=== PATIENT | male | born 1945 | race Native Hawaiian/Other Pacific Islander ===

== ENCOUNTER 2016-08-22 14:17 | Inpatient (IN) | payer MEDICARE ==
[2016-08-19 08:16] VITALS: BMI 30.2
--- NOTE | 2016-08-23 16:15 | CP.PCM.CON ---
History of Present Illness - History of Present Illness History of Present Illness: Dr Lion PMR consultation on Tiburcio Heller, born 1945 who has been admitted to [facility] for acute inpatient rehabilitation following a right ICH with left HP in MCA distribution. He had been previously independent Review of Systems - Constitutional Constitutional: absent: Anorexia, Chills - EENT Eyes: absent: Blind Spots, Blurred Vision Ears: absent: Ear Discharge, Disequilibrium Nose/Mouth/Throat: absent: Nasal Congestion - Cardiovascular Cardiovascular: absent: Chest Pain - Respiratory Respiratory: absent: Dyspnea - Gastrointestinal Gastrointestinal: absent: Bloating, Constipation - Musculoskeletal Musculoskeletal: absent: Arthralgias, Back Pain - Integumentary Integumentary: absent: Bleeding Lesions, Change in Hair - Neurological Neurological: absent: Abnormal Hearing, Abnormal Movements Past Patient History - Infectious Disease Hx of Infectious Diseases: None - Past Social History Smoking Status: Never Smoked Alcohol: None Drugs: Denies Home Situation {Lives}: With Family - CARDIAC Hx Hypertension: Yes - PULMONARY Hx Respiratory Disorders: No - NEUROLOGICAL Hx Neurological Disorder: No - HEENT Hx HEENT Problems: No Hx Cataracts: Yes - RENAL Hx Chronic Kidney Disease: No - ENDOCRINE/METABOLIC Hx Endocrine Disorders: No - HEMATOLOGICAL/ONCOLOGICAL Hx Blood Disorders: No - INTEGUMENTARY Hx Eczema: Yes - MUSCULOSKELETAL/RHEUMATOLOGICAL Hx Arthritis: Yes (KNEES) - GASTROINTESTINAL Hx Gastrointestinal Disorders: No - GENITOURINARY/GYNECOLOGICAL Hx Genitourinary Disorders: Yes - PSYCHIATRIC Hx Substance Use: No - SURGICAL HISTORY Hx Surgeries: No - ANESTHESIA Hx Anesthesia: No Meds Allergies/Adverse Reactions: Allergies Allergy/AdvReac Type Severity Reaction Status Date / Time No Known Allergies Allergy Verified 08/22/16 14:45 Physical Exam - Constitutional Appears: Well, Non-toxic, No Acute Distress - Head Exam Head Exam: ATRAUMATIC, NORMAL INSPECTION, NORMOCEPHALIC - Eye Exam Eye Exam: EOMI, Normal appearance, PERRL Pupil Exam: NORMAL ACCOMODATION, PERRL - ENT Exam ENT Exam: Mucous Membranes Moist - Respiratory Exam Respiratory Exam: NORMAL BREATHING PATTERN - Cardiovascular Exam Cardiovascular Exam: REGULAR RHYTHM - GI/Abdominal Exam GI & Abdominal Exam: absent: Distended, Firm - Extremities Exam Extremities exam: Negative for: calf tenderness, pedal edema - Neurological Exam Neurological exam: Alert, CN II-XII Intact, Oriented x3 - Psychiatric Exam Psychiatric exam: Normal Affect, Normal Mood - Skin Skin Exam: Warm Assessment & Plan - Assessment and Plan (Free Text) Assessment: 70 year old right hand dominant male who has been admitted for acute inpatient rehab coverage for Dr Amin left HP MCA distribution right ICH stable and doing well has 2/5 UE strength and 4-/5 LE PT/OT to continue to help increase functional independence Team conference for d/c planning Pain: controlled Vascular: no evidence of DVT GI: No evidence of constipation or diarrhea Patient is an excellent acute rehabilitation candidate and will have focused speech, PT, OT and recreational therapy to help facilitate a safe and appropriate d/c plan Impairment code 01.1
--- NOTE | 2016-08-23 16:19 | CP.PCM.PN ---
Subjective - Date & Time of Evaluation Date of Evaluation: 08/23/16 Time of Evaluation: 16:18 - Subjective Subjective: right ICH with left HP Physiatry Overall Plan of Care - Overall Plan of Care Estimated Length of Stay in Weeks: 3 Rehab Impairment: Mobility, Gait, Speech, Balance, Coordination Etiologic Diagnosis: Cerebrovascular Accident Rehab/Medical Prognosis: Good - Anticipated Interventions Physical Therapy:: Yes Occupational Therapy:: Yes Speech Therapy:: Yes Recreational Therapy:: Yes - Therapy Goals Bed Mobility: Supervision Ambulation: Supervision Functional Positional Changes:: Supervision - Discharge Plan Discharge Destination: Home
--- NOTE | 2016-08-23 17:36 | CP.PCM.HP ---
History of Present Illness - History of Present Illness History of Present Illness: 70 yo male with history of HTN was admitted at [facility] after falling in the bathroom on 08/19/2016. Patient claimed his left limbs suddenly got weak after taking a shower and was not able to support himself. There was no LOC. who rushed to his aid noticed left facial droop but no slurring of speech. He was immediately brought to the ER where code stroke was activated. CT scan of the brain was consistent with right small thalamic bleed. Neurosurgery was consulted and recommended no surgical intervention. Today patient was transferred to [facility] and admitted to Acute Rehab for PT/OT. Present on Admission - Present on Admission Any Indicators Present on Admission: No History of DVT/PE: No History of Uncontrolled Diabetes: No Urinary Catheter: No Decubitus Ulcer Present: No Review of Systems - Review of Systems All systems: reviewed and no additional remarkable complaints except (aside from those mentioned above, 12 point system review were negative by me) Past Patient History - Infectious Disease Hx of Infectious Diseases: None - Tetanus Immunizations Tetanus Immunization: Unknown - Past Medical History & Family History Past Medical History?: Yes Past Family History: Reviewed and not pertinent - Past Social History Smoking Status: Never Smoked Alcohol: None Drugs: Denies Home Situation {Lives}: With Family - CARDIAC Hx Hypertension: Yes - PULMONARY Hx Respiratory Disorders: No - NEUROLOGICAL Hx Neurological Disorder: No - HEENT Hx HEENT Problems: No Hx Cataracts: Yes - RENAL Hx Chronic Kidney Disease: No - ENDOCRINE/METABOLIC Hx Endocrine Disorders: No - HEMATOLOGICAL/ONCOLOGICAL Hx Blood Disorders: No - INTEGUMENTARY Hx Eczema: Yes - MUSCULOSKELETAL/RHEUMATOLOGICAL Hx Arthritis: Yes (KNEES) - GASTROINTESTINAL Hx Gastrointestinal Disorders: No - GENITOURINARY/GYNECOLOGICAL Hx Genitourinary Disorders: Yes Hx Prostate Problems: Yes (BPH) - PSYCHIATRIC Hx Substance Use: No - SURGICAL HISTORY Hx Surgeries: No - ANESTHESIA Hx Anesthesia: No Meds Allergies/Adverse Reactions: Allergies Allergy/AdvReac Type Severity Reaction Status Date / Time No Known Allergies Allergy Verified 08/22/16 14:45 Physical Exam - Constitutional Appears: No Acute Distress - Head Exam Head Exam: ATRAUMATIC - Eye Exam Eye Exam: absent: Scleral icterus - ENT Exam ENT Exam: Mucous Membranes Moist - Neck Exam Neck exam: Negative for: Meningismus - Respiratory Exam Respiratory Exam: absent: Rhonchi, Wheezes, Respiratory Distress - Cardiovascular Exam Cardiovascular Exam: REGULAR RHYTHM, +S1, +S2 - GI/Abdominal Exam GI & Abdominal Exam: Soft. absent: Tenderness - Rectal Exam Rectal Exam: Deferred - Extremities Exam Extremities exam: Negative for: pedal edema - Back Exam Back exam: NORMAL INSPECTION - Neurological Exam Neurological exam: Alert, Oriented x3 - Psychiatric Exam Psychiatric exam: Normal Affect - Skin Skin Exam: Dry, Intact Results - Vital Signs Recent Vital Signs: Last Vital Signs Temp Pulse 71 08/23/16 16:03 Resp 20 08/23/16 16:03 BP Pulse Ox 98 08/23/16 16:03 Assessment & Plan (1) CVA (cerebrovascular accident due to intracerebral hemorrhage) Status: Acute Comment: admit to Acute Rehab. refer to Dr Lion for physiatry consult. refer for PT/OT. BP control. neuro consult with Dr Metz (2) Hypertension Status: Chronic Comment: BP stable. continue Norvasc 10mg PO daily and Metoprolol 25mg PO q 12hrs
[2016-08-24 07:49] LABS: BASO % 0.4 % (0.0-2.0); EOS % 9.4 % (0.0-4.0); HEMOGLOBIN 15.9 g/dL (12.0-18.0); LYMPH # 1.9 K/uL (1.0-4.3); LYMPH % 17.3 % (20.0-40.0); MEAN CELL VOLUME 96.1 fl (80.0-94.0); MEAN CORPUSCULAR HEMOGLOBIN 31.6 pg (27.0-31.0); MEAN CORPUSCULAR HGB CONC 32.9 g/dL (33.0-37.0); MEAN PLATELET VOLUME 9.4 fl (7.2-11.7); MONO # 0.9 K/uL (0.0-0.8); MONO % 8.3 % (0.0-10.0); NEUT # 6.9 K/uL (1.8-7.0); NEUT % 64.6 % (50.0-75.0); RBC 5.02 Mil/uL (4.40-5.90); RED CELL DISTRIBUTION WIDTH 12.8 % (11.5-14.5); WHITE BLOOD COUNT 10.7 K/uL (4.8-10.8)
[2016-08-24 08:04] LABS: BLOOD UREA NITROGEN 22 mg/dl (9-20); CALCIUM 9.3 mg/dL (8.4-10.2); GFR AFRICAN-AMERICAN > 60; GFR NON-AFRICAN AMERICAN > 60
--- NOTE | 2016-08-26 10:43 | CP.PCM.PN ---
Subjective - Date & Time of Evaluation Date of Evaluation: 08/26/16 Time of Evaluation: 10:41 - Subjective Subjective: PATIENT DOING WELL NO COMPLAINTS TOLERATING PT WELL VITALS REVIEWED HD STABLE NAD Objective - Vital Signs/Intake and Output Vital Signs (last 24 hours): Temp Pulse Resp BP Pulse Ox 98.1 F 99 H 20 119/78 97 08/26/16 09:31 08/26/16 09:57 08/26/16 09:31 08/26/16 09:57 08/26/16 09:31 - Medications Medications: Current Medications Amlodipine Besylate (Norvasc) 10 mg PO DAILY [facility] Docusate Sodium (Colace) 100 mg PO BID [facility] Last Admin: 08/26/16 08:38 Dose: 100 mg Famotidine (Pepcid) 20 mg PO BID [facility] Last Admin: 08/26/16 08:40 Dose: 20 mg Metoprolol Tartrate (Lopressor) 25 mg PO Q12 [facility] - Labs Labs: 08/24/16 05:30 08/24/16 05:30 - Constitutional Appears: Non-toxic, No Acute Distress - Head Exam Head Exam: ATRAUMATIC, NORMOCEPHALIC - Eye Exam Eye Exam: EOMI, Normal appearance, PERRL Pupil Exam: NORMAL ACCOMODATION - ENT Exam ENT Exam: Mucous Membranes Moist, Normal Oropharynx - Neck Exam Neck Exam: Normal Inspection. absent: Lymphadenopathy - Respiratory Exam Respiratory Exam: Clear to Ausculation Bilateral, NORMAL BREATHING PATTERN - Cardiovascular Exam Cardiovascular Exam: RRR, +S1, +S2 - GI/Abdominal Exam GI & Abdominal Exam: Soft, Normal Bowel Sounds. absent: Tenderness, Organomegaly - Extremities Exam Extremities Exam: Normal Capillary Refill. absent: Joint Swelling - Back Exam Back Exam: absent: CVA tenderness (L), CVA tenderness (R) - Neurological Exam Neurological Exam: Alert, Awake - Psychiatric Exam Psychiatric exam: Normal Affect, Normal Mood - Skin Skin Exam: Dry, Warm Assessment and Plan - Assessment and Plan (Free Text) Plan: 70 yo male with history of HTN was admitted at [facility] after falling in the bathroom on 08/19/2016. Patient claimed his left limbs suddenly got weak after taking a shower and was not able to support himself. There was no LOC. who rushed to his aid noticed left facial droop but no slurring of speech. He was immediately brought to the ER where code stroke was activated. CT scan of the brain was consistent with right small thalamic bleed. Neurosurgery was consulted and recommended no surgical intervention. Today patient was transferred to [facility] and admitted to Acute Rehab for PT/OT. (1) CVA (cerebrovascular accident due to intracerebral hemorrhage) admit to Acute Rehab refer to Dr Lion for physiatry consult refer for PT/OT BP control neuro consult with Dr Metz (2) Hypertension BP stable continue Norvasc 10mg PO daily Metoprolol 25mg PO q 12hrs WITH PARAMETERS NO VTE PPX BLEED
--- NOTE | 2016-08-26 11:54 | DS ---
DATE: 08/24/2016 CHIEF COMPLAINT: The patient was brought into the facility with history of intracerebral bleed secondary to hypertension manifesting with left hemiplegia. Initially, patient was admitted in the [facility], being followed by me and his blood pressure being stabilized and all workup including MRI of the brain and electroencephalogram including carotid Doppler all done. At present, he denies any new complaints. However, he admits constipation for the last few days. PAST MEDICAL HISTORY: Hypertension which is uncontrolled and noncompliant to medication and compliant with the medication in the past prior to the stroke. ALLERGIES: NO KNOWN ALLERGIES. PERSONAL HISTORY: He denies smoking or alcohol use. MEDICATION: Colace, Lopressor, Norvasc and Pepcid. PHYSICAL EXAMINATION: VITAL SIGNS: Blood pressure 132/87, mean arterial pressure of 102, respiratory rate 16, temperature 97.4, pulse rate 82 and regular. NECK: Supple. No carotid bruits. HEART: Sounds are regular. CHEST: Bilateral air entry. EXTREMITIES: No edema or leg swelling. NEUROLOGIC:] MENTAL STATUS EXAMINATION: He is awake, alert and oriented to person, place and time. Speech is intact. No changes from his previous exam while he was in the [facility]. CRANIAL NERVE EXAMINATION: Visual field intact. Pupil react reactive to light. Extraocular movements normal. No nystagmus. No facial sensory deficit. Significant facial asymmetry manifesting as a flattening of the left nasolabial fold. Hearing is normal. Tongue is midline. Good grasp. MOTOR EXAMINATION: On outstretched hand No drift, noted on the right side. Left side has significant weakness due to the stroke manifesting with 2/5 weakness in the arm. Lower extremities showed 1/5 weakness. DEEP TENDON REFLEXES: Trace throughout. Plantars are upgoing on his left side. COORDINATION: [id number] test is intact on the right side. GAIT: Deferred at this time. CONCLUSION: Upon review of his history and neurological examination, Mr. Heller may be presenting with the poorly controlled hypertension manifesting with intracerebral bleed in his right basal ganglia manifested with left hemiplegia. Patient showed some motor findings improvement within the 72-hour period more than his leg. LABORATORY DATA: Blood workup; WBC 10.7, hemoglobin 15.9, hematocrit 48.3, platelets 180. Sodium 139, potassium 4.1, chloride 102, bicarbonate 26, BUN 22, creatinine 1.0, GFR more than 60. RECOMMENDATION: 1. Control the blood pressure. Keep the mean arterial blood pressure at around 100. 2. Patient definitely need left arm sling to prevent shoulder dislocation and cock-up splint to prevent wrist drop on his affected side. Shoulder sling can be used while he is sitting and cock-up splint can be used during rest. 3. Patient also recommended to have a Dulcolax suppository to avoid constipation and daily regular bowel movement. 4. DVT prophylaxis is not recommended and antiplatelet should not be given in the next 2 to 3 weeks. Patient is going to be kept with sequential SHERRY stockings for DVT prophylaxis. Cruz Metz MD MTDD
--- NOTE | 2016-08-26 22:24 | CON ---
DATE: 08/26/2016 NEUROLOGICAL PROBLEM: Right thalamic bleed secondary to hypertension and presenting with left hemiparesis. The patient is more awake and his motor function is somewhat improved. His left upper extremity is now 4-5/5, left lower extremity is 4/5, this is significantly improved to compare 48 hour period. RECOMMENDATIONS: Continue the present management. Arm sling should be used while he is awake and when he is sitting in the wheelchair. Cock-up splint can be placed during rest in the bed. Cruz Metz MD
--- NOTE | 2016-08-27 13:09 | CP.PCM.PN ---
Subjective - Date & Time of Evaluation Date of Evaluation: 08/27/16 Time of Evaluation: 10:00 - Subjective Subjective: patinet with no shoulder or wrist pain Objective - Vital Signs/Intake and Output Vital Signs (last 24 hours): Temp Pulse Resp BP Pulse Ox 97.5 F L 70 20 113/75 95 08/27/16 07:35 08/27/16 11:34 08/27/16 07:35 08/27/16 11:34 08/27/16 07:35 - Medications Medications: Current Medications Acetaminophen (Tylenol 325mg Tab) 650 mg PO Q4 PRN PRN Reason: Headache Last Admin: 08/26/16 12:28 Dose: 650 mg Amlodipine Besylate (Norvasc) 10 mg PO DAILY [facility] Last Admin: 08/27/16 08:38 Dose: 10 mg Bisacodyl (Dulcolax) 10 mg GA DAILY PRN PRN Reason: Constipation Docusate Sodium (Colace) 100 mg PO BID [facility] Last Admin: 08/27/16 08:38 Dose: 100 mg Famotidine (Pepcid) 20 mg PO BID [facility] Last Admin: 08/27/16 08:38 Dose: 20 mg Metoprolol Tartrate (Lopressor) 25 mg PO Q12 [facility] Last Admin: 08/27/16 11:34 Dose: 25 mg - Labs Labs: 08/24/16 05:30 08/24/16 05:30 - Head Exam Head Exam: ATRAUMATIC, NORMAL INSPECTION, NORMOCEPHALIC - Eye Exam Eye Exam: EOMI, Normal appearance, PERRL Pupil Exam: NORMAL ACCOMODATION - ENT Exam ENT Exam: Mucous Membranes Moist, Normal Exam - Neck Exam Neck Exam: Normal Inspection - Respiratory Exam Respiratory Exam: NORMAL BREATHING PATTERN - Cardiovascular Exam Cardiovascular Exam: REGULAR RHYTHM - GI/Abdominal Exam GI & Abdominal Exam: Normal Bowel Sounds - Rectal Exam Rectal Exam: NORMAL INSPECTION - Extremities Exam Extremities Exam: Normal Capillary Refill - Back Exam Back Exam: NORMAL INSPECTION - Neurological Exam Neurological Exam: Alert, Awake Neuro motor strength exam: Left Upper Extremity: 2/1, Right Upper Extremity: 3, Left Lower Extremity: 2/1, Right Lower Extremity: 3 - Psychiatric Exam Psychiatric exam: Normal Affect, Normal Mood - Skin Skin Exam: Intact Assessment and Plan (1) CVA (cerebrovascular accident due to intracerebral hemorrhage) Assessment & Plan: plan for physical,occupational,speech and rec therapy , discussed with family , arm with movement no need for brace at present Status: Acute (2) Basal ganglia hemorrhage Status: Acute (3) Bleeding gums Status: Acute (4) Hypertension Status: Chronic
--- NOTE | 2016-08-28 12:32 | PSY.TMCNF ---
Nursing - Vital Signs Vital Signs (Last 8 hours): Vital Signs 08/28/16 08/28/16 08/28/16 08:36 08:37 08:38 Temperature 97.3 F L Pulse Rate 81 81 81 Respiratory 19 Rate Blood Pressure 116/71 116/71 116/71 O2 Sat by Pulse 97 Oximetry Pain: 0 - Precautions: Precautions: Fall Prevention, Aspiration - Medications/Other Issues Comment: Pt at moderate nutritional risk. goal: 1. Pt to consume 75-100% of meals. Follow-up due on 09/02/2016 - Consults Comment: Neuro - Toileting Toileting: Dependent - Bladder Management Bladder Pattern: Normal Voiding Method: Urinal Bladder Management: Maximal Assistance Frequency of Accidents: none - Bowel Management Bowel Pattern: Normal Comment: continent,use bedpan Bowel Management: Maximal Assistance Frequency of Accidents: none - Transfers Transfers: Maximal Assistance - ADL's ADL's: Dependent - Pain Management Comments: denies - Patient/Family Teaching Comments: safety transfer - Goals/Time Frame Comments: "Able to go home & do things for myself if possible" Physical Therapy - Bed Mobility Bed Mobility: Maximum Assistance - Transfers Wheelchair to Mat: Maximum Assistance, Dependent Sit to Stand: Maximum Assistance - Ambulation Level of Assistance: Maximum Assistance Distance (ft.): 10 Orthoses: ARA martines Comment: -10 steps with R wall bar with max A with close WC follow, ARA moore sling. -max A for weight shifting, trunk control and mod A for LLE progression; patient able to initiate but unable to generate enough motion or in proper sequencing to mobility and stable LLE through gait phases. -one incidence of BLE buckling requiring total A to maintain standing. -x 2 trials with mirror feedback for safety and cueing - Stair Negotiation Stairs: Level of Assistance: Not Tested - Standing Balance Static Stand: Maximal Assistance Dynamic Stand: Maximal Assistance - Pain Pain (assessed during therapy session): 0 Comment: pt denies - Insight/Carryover Insight/Carryover: Fair - Patient/Family Education Comment: -educated on patient positioning and to avoid use of pillows for support. -therapy schedule, therapy goals, POC, safety, mobility, positioning, transfers, use of call yañez - Assessment/Plan Assessment: Pt is agreeable to participate in sessions. At this time pt requires mod A throughout recreation therapy sessions. Pt presents with decrease initiation, decrease direction following, decrease insight of deficits , decrease command following, and decrease visual scanning to R side of tasks. Pt's mood is stable-positive and will continue to be encouraged to participate in recreation therapy sessions. - Goals Timeframe: 7 days Goals: -asc/desc 3 4inch steps with single rail with max A. -Pt will maintain static sitting at edge of bed for 5 minutes with min A to facilitate reduce burden of care during transfer techniques. -ambulate at wall bar with mod A x 20 feet. -sit to/from stand with mod A with WBQC. -stand pivot transfers without device with mod A. -rolling with mod A. -sit to/from supine with mod A - Provider Therapist: roberto Sánchezedge burnisher Therapy - Arousal/Attention/Orientation Patient Orientation: Person, Place, Time, Appropriate to Age, Appropriate to Situation - ADL/IADL Self Feeding: Verbal Cues, Set-up Help, Minimal Assistance Grooming: Verbal Cues, Set-up Help, Minimal Assistance Bathing-Upper Extremity: Maximum Assistance Bathing-Lower Extremity: Dependent Dressing-Upper Extremity: Maximum Assistance Dressing-Lower Extremity: Dependent - Sitting Balance Static Sitting: Moderate Assistance Dynamic Sitting: Unable to assess/perform - Transfers Wheelchair to Bed Transfers: Dependent - Upper Extremity Status Left Upper Extremity Comment: Pt noted to have hemiplegic LUE, pt with approx 60 * shoulder flexion, 45* shoulder extension, pt noted to have apraxia and difficulty motor planning to following commands, however pt passively WFL, pt does complain of shoulder discomfort. No noted scapular deformity, possibly half finger subluxation however able to approximate without pain. - Pain Pain (assessed during therapy session): 0 Comment: pt denies - Insight/Carryover Insight/Carryover: Fair - Patient/Family Education Comment: -educated on patient positioning and to avoid use of pillows for support. -therapy schedule, therapy goals, POC, safety, mobility, positioning, transfers, use of call yañez - Assessment/Plan Assessment: Pt is agreeable to participate in sessions. At this time pt requires mod A throughout recreation therapy sessions. Pt presents with decrease initiation, decrease direction following, decrease insight of deficits , decrease command following, and decrease visual scanning to R side of tasks. Pt's mood is stable-positive and will continue to be encouraged to participate in recreation therapy sessions. - Goals Timeframe: 7 days Goals: -asc/desc 3 4inch steps with single rail with max A. -Pt will maintain static sitting at edge of bed for 5 minutes with min A to facilitate reduce burden of care during transfer techniques. -ambulate at wall bar with mod A x 20 feet. -sit to/from stand with mod A with WBQC. -stand pivot transfers without device with mod A. -rolling with mod A. -sit to/from supine with mod A - Provider Therapist: Bridgette Grace Speech Therapy - Consult Information Patient on Program: Yes Medical Diagnosis: CVA Treatment Diagnosis: -mild-moderate cognitive deficits. -mild dysarthria/voice disorder. -minimal-mild dysphagia - Assessment Problem Solving Impairment: Mild Memory Impairment: Moderate Speech/Articulation Impairment: Mild Dysphagia/Swallowing Impairment: Mild Comment: minimal-mild dysphagia - Plan Assessment: Pt is agreeable to participate in sessions. At this time pt requires mod A throughout recreation therapy sessions. Pt presents with decrease initiation, decrease direction following, decrease insight of deficits , decrease command following, and decrease visual scanning to R side of tasks. Pt's mood is stable-positive and will continue to be encouraged to participate in recreation therapy sessions. - Provider Therapist: Bel Silva License Number: [id number] Recreational Therapy - Participation Participation: Participates in Individual and/or Group Sessions, Monitors His/ Her Own Leisure Time - Attendance Attendance: 3-5 times per week - Activities Leisure Activities: Socializing - Socialization Level of Socialization: Initiates/interacts freely with care givers and peer - Diversional Time Diversional Time: socializing - Assessment Assessment/Plan: Pt is agreeable to participate in sessions. At this time pt requires mod A throughout recreation therapy sessions. Pt presents with decrease initiation, decrease direction following, decrease insight of deficits , decrease command following, and decrease visual scanning to R side of tasks. Pt's mood is stable-positive and will continue to be encouraged to participate in recreation therapy sessions. Problems Currently Limiting Participation: decrease command following, decrease attention to task, decrease leisure awareness level, decrease insight of deficits Goals and Time Frame: Pt will be encouraged to participate in 1:1 and group recreation therapy sessins 3-5x week to improve attention to task, direction following, problem solving, and command following. - Provider Therapist: Ling Hairston [employer] #[id number] Nutrition - Current Diet Current Diet/ Supplement/ Feedings: Heart healthy diet - Appetite Percent Meal Consumed: 50-74% - Comments Comments: safety transfer - Assessment/Goals/Time Frame Assessment/Goals/Time Frame: Pt at moderate nutritional risk. goal: 1. Pt to consume 75-100% of meals. Follow-up due on 09/02/2016 - Provider Provider: Nancy Jeffries RD Case Management - Discharge Plan Discharge Plan: Home with significant other/family Rehabilitation Plan - Treatment Plan Treatment Plan: Physical Therapy, Occupational Therapy, Speech, Dietary, Patient /Family Education - Recommendation Recommendation: Physical Therapy, Occupational Therapy, Speech, Dietary, Patient /Family Education - Discharge Plan Discharge to: Home (dc for the 30 )
--- NOTE | 2016-08-28 14:46 | CP.PCM.PN ---
Subjective - Date & Time of Evaluation Date of Evaluation: 08/28/16 Time of Evaluation: 10:00 - Subjective Subjective: patient with no neck or back pain Objective - Vital Signs/Intake and Output Vital Signs (last 24 hours): Temp Pulse Resp BP Pulse Ox 97.3 F L 81 19 116/71 97 08/28/16 08:37 08/28/16 08:38 08/28/16 08:37 08/28/16 08:38 08/28/16 08:37 - Medications Medications: Current Medications Acetaminophen (Tylenol 325mg Tab) 650 mg PO Q4 PRN PRN Reason: Headache Last Admin: 08/28/16 13:14 Dose: 650 mg Amlodipine Besylate (Norvasc) 10 mg PO DAILY [facility] Last Admin: 08/28/16 08:36 Dose: 10 mg Bisacodyl (Dulcolax) 10 mg [place] DAILY PRN PRN Reason: Constipation Last Admin: 08/27/16 16:47 Dose: 10 mg Docusate Sodium (Colace) 100 mg PO BID [facility] Last Admin: 08/28/16 08:32 Dose: 100 mg Famotidine (Pepcid) 20 mg PO BID [facility] Last Admin: 08/28/16 08:31 Dose: 20 mg Metoprolol Tartrate (Lopressor) 25 mg PO Q12 [facility] Last Admin: 08/28/16 08:38 Dose: 25 mg - Labs Labs: 08/24/16 05:30 08/24/16 05:30 - Head Exam Head Exam: ATRAUMATIC, NORMAL INSPECTION, NORMOCEPHALIC - Eye Exam Eye Exam: EOMI, Normal appearance, PERRL Pupil Exam: NORMAL ACCOMODATION - ENT Exam ENT Exam: Mucous Membranes Moist, Normal Exam - Respiratory Exam Respiratory Exam: NORMAL BREATHING PATTERN - Cardiovascular Exam Cardiovascular Exam: REGULAR RHYTHM - GI/Abdominal Exam GI & Abdominal Exam: Soft, Normal Bowel Sounds - Rectal Exam Rectal Exam: NORMAL INSPECTION - Extremities Exam Extremities Exam: Full ROM, Normal Capillary Refill, Normal Inspection - Neurological Exam Neurological Exam: Alert, Awake Neuro motor strength exam: Left Upper Extremity: 2/1, Right Upper Extremity: 3, Left Lower Extremity: 2/1, Right Lower Extremity: 3 - Psychiatric Exam Psychiatric exam: Normal Affect, Normal Mood - Skin Skin Exam: Dry, Intact Assessment and Plan (1) CVA (cerebrovascular accident due to intracerebral hemorrhage) Assessment & Plan: plan for physical, occupationla and rec therapy status post team conference discussed Dc plaaniing with patinet and family Status: Acute (2) Basal ganglia hemorrhage Status: Acute (3) Bleeding gums Status: Acute (4) Hypertension Status: Chronic
--- NOTE | 2016-08-28 16:47 | CP.PCM.PN ---
Subjective - Date & Time of Evaluation Date of Evaluation: 08/28/16 Time of Evaluation: 14:20 - Subjective Subjective: Pt seen and examined. Pt claimed he was doing better. Objective - Vital Signs/Intake and Output Vital Signs (last 24 hours): Temp Pulse Resp BP Pulse Ox 97.3 F L 81 19 116/71 97 08/28/16 08:37 08/28/16 08:38 08/28/16 08:37 08/28/16 08:38 08/28/16 08:37 - Medications Medications: Current Medications Acetaminophen (Tylenol 325mg Tab) 650 mg PO Q4 PRN PRN Reason: Headache Last Admin: 08/28/16 13:14 Dose: 650 mg Amlodipine Besylate (Norvasc) 10 mg PO DAILY [facility] Last Admin: 08/28/16 08:36 Dose: 10 mg Bisacodyl (Dulcolax) 10 mg [place] DAILY PRN PRN Reason: Constipation Last Admin: 08/27/16 16:47 Dose: 10 mg Docusate Sodium (Colace) 100 mg PO BID [facility] Last Admin: 08/28/16 08:32 Dose: 100 mg Famotidine (Pepcid) 20 mg PO BID [facility] Last Admin: 08/28/16 08:31 Dose: 20 mg Metoprolol Tartrate (Lopressor) 25 mg PO Q12 [facility] Last Admin: 08/28/16 08:38 Dose: 25 mg - Labs Labs: 08/24/16 05:30 08/24/16 05:30 - Constitutional Appears: No Acute Distress - Head Exam Head Exam: ATRAUMATIC - Eye Exam Eye Exam: absent: Scleral icterus - ENT Exam ENT Exam: Mucous Membranes Moist - Neck Exam Neck Exam: absent: Meningismus - Respiratory Exam Respiratory Exam: absent: Rhonchi, Wheezes, Respiratory Distress - Cardiovascular Exam Cardiovascular Exam: REGULAR RHYTHM, +S1, +S2 - GI/Abdominal Exam GI & Abdominal Exam: Soft. absent: Tenderness - Rectal Exam Rectal Exam: Deferred - Extremities Exam Extremities Exam: absent: Pedal Edema - Neurological Exam Neurological Exam: Alert, Oriented x3 - Psychiatric Exam Psychiatric exam: Normal Affect - Skin Skin Exam: Dry, Intact Assessment and Plan (1) CVA (cerebrovascular accident due to intracerebral hemorrhage) Status: Acute (2) Hypertension Status: Chronic - Assessment and Plan (Free Text) Assessment: 70 yo male with history of HTN was admitted at [facility] after falling in the bathroom on 08/19/2016. Patient claimed his left limbs suddenly got weak after taking a shower and was not able to support himself. There was no LOC. who rushed to his aid noticed left facial droop but no slurring of speech. He was immediately brought to the ER where code stroke was activated. CT scan of the brain was consistent with right small thalamic bleed. Neurosurgery was consulted and recommended no surgical intervention. Today patient was transferred to [facility] and admitted to Acute Rehab for PT/OT. (1) CVA (cerebrovascular accident due to intracerebral hemorrhage) Dr Lion for physiatry consult continue PT/OT BP control Dr Metz on neuro consult (2) Hypertension BP stable continue Norvasc 10mg PO daily Metoprolol 25mg PO q 12hrs
--- NOTE | 2016-08-30 14:06 | CP.PCM.PN ---
Subjective - Date & Time of Evaluation Date of Evaluation: 08/30/16 Time of Evaluation: 09:00 - Subjective Subjective: no acute complaints of pain, some knee discomfort, want to go to the bathroom Objective - Vital Signs/Intake and Output Vital Signs (last 24 hours): Temp Pulse Resp BP Pulse Ox 97.3 F L 70 20 113/61 97 08/30/16 08:44 08/30/16 08:44 08/30/16 08:44 08/30/16 08:44 08/30/16 08:44 - Medications Medications: Current Medications Acetaminophen (Tylenol 325mg Tab) 650 mg PO Q4 PRN PRN Reason: Headache Last Admin: 08/28/16 13:14 Dose: 650 mg Amlodipine Besylate (Norvasc) 10 mg PO DAILY [facility] Last Admin: 08/30/16 08:35 Dose: 10 mg Bisacodyl (Dulcolax) 10 mg [place] DAILY PRN PRN Reason: Constipation Last Admin: 08/27/16 16:47 Dose: 10 mg Docusate Sodium (Colace) 100 mg PO BID [facility] Last Admin: 08/30/16 08:34 Dose: 100 mg Famotidine (Pepcid) 20 mg PO BID [facility] Last Admin: 08/30/16 08:35 Dose: 20 mg Metoprolol Tartrate (Lopressor) 25 mg PO Q12 [facility] Last Admin: 08/30/16 08:36 Dose: 25 mg - Labs Labs: 08/24/16 05:30 08/24/16 05:30 - Head Exam Head Exam: ATRAUMATIC, NORMAL INSPECTION, NORMOCEPHALIC - Eye Exam Eye Exam: EOMI, Normal appearance, PERRL Pupil Exam: NORMAL ACCOMODATION - ENT Exam ENT Exam: Mucous Membranes Moist, Normal Exam - Neck Exam Neck Exam: Normal Inspection - Respiratory Exam Respiratory Exam: NORMAL BREATHING PATTERN - Cardiovascular Exam Cardiovascular Exam: REGULAR RHYTHM - GI/Abdominal Exam GI & Abdominal Exam: Normal Bowel Sounds - Rectal Exam Rectal Exam: NORMAL INSPECTION - Exam External exam: NORMAL EXTERNAL EXAM - Extremities Exam Extremities Exam: Normal Capillary Refill - Back Exam Back Exam: NORMAL INSPECTION - Neurological Exam Neurological Exam: Alert, Awake Neuro motor strength exam: Left Upper Extremity: 2/1, Right Upper Extremity: 3, Left Lower Extremity: 2/1, Right Lower Extremity: 3 - Psychiatric Exam Psychiatric exam: Normal Affect, Normal Mood - Skin Skin Exam: Dry, Intact Assessment and Plan (1) CVA (cerebrovascular accident due to intracerebral hemorrhage) Assessment & Plan: plan for physical, occupational, rec therapy tentative Dc for 09/11 to continue with dc planning moitor,skin and bowell or bladder Status: Acute (2) Basal ganglia hemorrhage Status: Acute (3) Bleeding gums Status: Acute (4) Hypertension Status: Chronic
--- NOTE | 2016-08-30 14:54 | CP.PCM.PN ---
Subjective - Date & Time of Evaluation Date of Evaluation: 08/30/16 Time of Evaluation: 11:00 - Subjective Subjective: Pt seen and examined. Denied any complaint Objective - Vital Signs/Intake and Output Vital Signs (last 24 hours): Temp Pulse Resp BP Pulse Ox 97.3 F L 70 20 113/61 97 08/30/16 08:44 08/30/16 08:44 08/30/16 08:44 08/30/16 08:44 08/30/16 08:44 - Medications Medications: Current Medications Acetaminophen (Tylenol 325mg Tab) 650 mg PO Q4 PRN PRN Reason: Headache Last Admin: 08/28/16 13:14 Dose: 650 mg Amlodipine Besylate (Norvasc) 10 mg PO DAILY [facility] Last Admin: 08/30/16 08:35 Dose: 10 mg Bisacodyl (Dulcolax) 10 mg [place] DAILY PRN PRN Reason: Constipation Last Admin: 08/27/16 16:47 Dose: 10 mg Docusate Sodium (Colace) 100 mg PO BID [facility] Last Admin: 08/30/16 08:34 Dose: 100 mg Famotidine (Pepcid) 20 mg PO BID [facility] Last Admin: 08/30/16 08:35 Dose: 20 mg Metoprolol Tartrate (Lopressor) 25 mg PO Q12 [facility] Last Admin: 08/30/16 08:36 Dose: 25 mg - Labs Labs: 08/24/16 05:30 08/24/16 05:30 - Constitutional Appears: No Acute Distress - Head Exam Head Exam: ATRAUMATIC - Eye Exam Eye Exam: absent: Scleral icterus - ENT Exam ENT Exam: Mucous Membranes Moist - Neck Exam Neck Exam: absent: Meningismus - Respiratory Exam Respiratory Exam: absent: Rhonchi, Wheezes, Respiratory Distress - Cardiovascular Exam Cardiovascular Exam: REGULAR RHYTHM, +S1, +S2 - GI/Abdominal Exam GI & Abdominal Exam: Soft. absent: Tenderness - Rectal Exam Rectal Exam: Deferred - Neurological Exam Neurological Exam: Alert, Oriented x3 - Psychiatric Exam Psychiatric exam: Normal Affect - Skin Skin Exam: Dry, Intact Assessment and Plan (1) CVA (cerebrovascular accident due to intracerebral hemorrhage) Status: Acute (2) Hypertension Status: Chronic - Assessment and Plan (Free Text) Assessment: 70 yo male with history of HTN was admitted at [facility] after falling in the bathroom on 08/19/2016 because of left sided weakness. He was immediately brought to the ER where code stroke was activated. CT scan of the brain was consistent with right small thalamic bleed. Neurosurgery was consulted and recommended no surgical intervention. Today patient was transferred to [facility] and admitted to Acute Rehab for PT/OT. (1) CVA (cerebrovascular accident due to intracerebral hemorrhage) Dr Lion on physiatry consult continue PT/OT BP control Dr Metz on neuro consult (2) Hypertension BP stable continue Norvasc and Metoprolol
--- NOTE | 2016-08-31 21:55 | CP.PCM.PN ---
Subjective - Date & Time of Evaluation Date of Evaluation: 08/31/16 Time of Evaluation: 13:00 - Subjective Subjective: no acute complaints of any pain Objective - Vital Signs/Intake and Output Vital Signs (last 24 hours): Temp Pulse Resp BP Pulse Ox 97.0 F L 80 20 124/77 96 08/31/16 20:33 08/31/16 21:13 08/31/16 20:33 08/31/16 21:13 08/31/16 20:33 - Medications Medications: Current Medications Acetaminophen (Tylenol 325mg Tab) 650 mg PO Q4 PRN PRN Reason: Headache Last Admin: 08/31/16 13:05 Dose: 650 mg Amlodipine Besylate (Norvasc) 10 mg PO DAILY [facility] Last Admin: 08/31/16 08:43 Dose: Not Given Bisacodyl (Dulcolax) 10 mg [place] DAILY PRN PRN Reason: Constipation Last Admin: 08/30/16 17:02 Dose: 10 mg Docusate Sodium (Colace) 100 mg PO BID [facility] Last Admin: 08/31/16 16:25 Dose: 100 mg Famotidine (Pepcid) 20 mg PO BID [facility] Last Admin: 08/31/16 16:25 Dose: 20 mg Metoprolol Tartrate (Lopressor) 25 mg PO Q12 [facility] Last Admin: 08/31/16 21:13 Dose: 25 mg - Labs Labs: 08/24/16 05:30 08/24/16 05:30 - Head Exam Head Exam: ATRAUMATIC, NORMAL INSPECTION, NORMOCEPHALIC - Eye Exam Eye Exam: EOMI, Normal appearance Pupil Exam: NORMAL ACCOMODATION, PERRL - ENT Exam ENT Exam: Mucous Membranes Moist, Normal Exam - Respiratory Exam Respiratory Exam: Clear to Ausculation Bilateral, NORMAL BREATHING PATTERN - Cardiovascular Exam Cardiovascular Exam: REGULAR RHYTHM - GI/Abdominal Exam GI & Abdominal Exam: Normal Bowel Sounds - Rectal Exam Rectal Exam: NORMAL INSPECTION - Extremities Exam Extremities Exam: Normal Capillary Refill, Normal Inspection - Back Exam Back Exam: NORMAL INSPECTION - Neurological Exam Neurological Exam: Alert, Awake Neuro motor strength exam: Left Upper Extremity: 2/1, Right Upper Extremity: 3, Left Lower Extremity: 2/1, Right Lower Extremity: 3 - Psychiatric Exam Psychiatric exam: Normal Affect, Normal Mood - Skin Skin Exam: Normal Color Assessment and Plan (1) CVA (cerebrovascular accident due to intracerebral hemorrhage) Assessment & Plan: plan to continue with acute rehab, physical, occupational therapy and speech program and rec therapy. do family training monitor bowel and bladder and skin pain management Status: Acute (2) Basal ganglia hemorrhage Status: Acute (3) Bleeding gums Status: Acute (4) Hypertension Status: Chronic
--- NOTE | 2016-09-02 12:06 | CP.PCM.PN ---
Subjective - Date & Time of Evaluation Date of Evaluation: 09/02/16 Time of Evaluation: 18:30 - Subjective Subjective: Patient seen and examined bedside. feeling better. Hemodynamically stable, afebrile. No acute issues overnight. Participating with PT . Objective - Vital Signs/Intake and Output Vital Signs (last 24 hours): Temp Pulse Resp BP Pulse Ox 97.6 F 64 19 137/78 97 09/02/16 08:44 09/02/16 09:10 09/02/16 08:44 09/02/16 09:10 09/02/16 08:44 - Medications Medications: Current Medications Acetaminophen (Tylenol 325mg Tab) 650 mg PO Q4 PRN PRN Reason: Headache Last Admin: 08/31/16 13:05 Dose: 650 mg Amlodipine Besylate (Norvasc) 10 mg PO DAILY [facility] Last Admin: 09/02/16 09:10 Dose: 10 mg Bisacodyl (Dulcolax) 10 mg [place] DAILY PRN PRN Reason: Constipation Last Admin: 08/30/16 17:02 Dose: 10 mg Docusate Sodium (Colace) 100 mg PO BID [facility] Last Admin: 09/02/16 09:09 Dose: 100 mg Famotidine (Pepcid) 20 mg PO BID [facility] Last Admin: 09/02/16 09:10 Dose: 20 mg Metoprolol Tartrate (Lopressor) 25 mg PO Q12 [facility] Last Admin: 09/02/16 09:10 Dose: 25 mg - Labs Labs: 08/24/16 05:30 08/24/16 05:30 - Constitutional Appears: Non-toxic, No Acute Distress - Head Exam Head Exam: ATRAUMATIC, NORMAL INSPECTION, NORMOCEPHALIC - Eye Exam Eye Exam: EOMI, Normal appearance, PERRL Pupil Exam: NORMAL ACCOMODATION - ENT Exam ENT Exam: Mucous Membranes Moist, Normal Exam - Neck Exam Neck Exam: Full ROM, Normal Inspection - Respiratory Exam Respiratory Exam: Clear to Ausculation Bilateral, NORMAL BREATHING PATTERN. absent: Rales, Rhonchi, Wheezes - Cardiovascular Exam Cardiovascular Exam: REGULAR RHYTHM, RRR, +S1, +S2. absent: JVD - GI/Abdominal Exam GI & Abdominal Exam: Soft, Normal Bowel Sounds. absent: Distended, Guarding, Tenderness, Rebound - Rectal Exam Rectal Exam: Deferred - Extremities Exam Extremities Exam: Full ROM, Normal Capillary Refill, Normal Inspection. absent : Calf Tenderness, Pedal Edema - Back Exam Back Exam: NORMAL INSPECTION - Neurological Exam Neurological Exam: Alert, Awake, Oriented x3 Additional comments: left side weakness - Psychiatric Exam Psychiatric exam: Normal Affect, Normal Mood - Skin Skin Exam: Dry, Intact, Normal Color, Warm Assessment and Plan - Assessment and Plan (Free Text) Assessment: 70 yo male with history of HTN was admitted at [facility] after falling in the bathroom on 08/19/2016 because of left sided weakness. He was immediately brought to the ER where code stroke was activated. CT scan of the brain was consistent with right small thalamic bleed. Neurosurgery was consulted and recommended no surgical intervention.Patient was transferred to [facility] and admitted to Acute Rehab for PT/OT. 1. CVA (cerebrovascular accident due to intracerebral hemorrhage) Dr Lion on physiatry consult continue PT/OT BP control Dr Metz on neuro consult 2. Hypertension BP stable continue Norvasc and Metoprolol 3.DVt prophylaxis SCD
--- NOTE | 2016-09-04 12:38 | PSY.TMCNF ---
Nursing - Vital Signs Vital Signs (Last 8 hours): Vital Signs 09/04/16 09/04/16 09/04/16 08:29 08:51 09:00 Temperature 98.2 F 98.2 F Pulse Rate 67 67 67 Respiratory 20 20 Rate Blood Pressure 128/84 128/84 128/84 O2 Sat by Pulse 96 Oximetry Pain: 0 - Precautions: Precautions: Fall Prevention, Aspiration - Medications/Other Issues Comment: None - Consults Comment: Neuro , [facility] - Toileting Toileting: Maximal Assistance - Bladder Management Bladder Pattern: Normal Voiding Method: Urinal Bladder Management: Maximal Assistance - Bowel Management Bowel Pattern: Normal Comment: continent,use bedpan Bowel Management: Maximal Assistance Frequency of Accidents: none - Transfers Transfers: Maximal Assistance - ADL's ADL's: Dependent - Pain Management Comments: denies - Patient/Family Teaching Comments: safety transfer, post CVA care - Goals/Time Frame Comments: Per IPOC - Provider Provider: Rachael Starr Physical Therapy - Bed Mobility Bed Mobility: Maximum Assistance - Transfers Wheelchair to Mat: Dependent Sit to Stand: Maximum Assistance - Ambulation Level of Assistance: Maximum Assistance Distance (ft.): 10 Comment: 10 ft at R sided wall bar - Stair Negotiation Stairs: Level of Assistance: Not Tested - Standing Balance Static Stand: Maximal Assistance Dynamic Stand: Unable to assess/perform - Pain Pain (assessed during therapy session): 4 Management Techniques: Inactivity Comment: L shoulder intermittent - Insight/Carryover Insight/Carryover: Fair - Patient/Family Education Comment: Role of OT, Plan of care, stroke recovery, L neglect, proper positioning, subluxation, compensatory strategies, safety, transfers, bed mobility, ADLs. - Assessment/Plan Assessment: Pt continues to have poor trunk control and sitting balance, impaired motor control, L hemiplegia, L neglect, impulsivity and diffiuclty with terminating task. Pt remains a significant caregiver burden and requires continued skilled OT services to address performance deficits in order to maximize indendence with ADLs and functional mobility - Goals Timeframe: 3 weeks Goals: increase LUE to 1/2 muscle grade. MIN A with bed to commode transfer. MIN A with UE dressing. MIN A with bed mobility - Provider Therapist: juan License Number: [id number] Occupational Therapy - Arousal/Attention/Orientation Patient Orientation: Person, Place, Time, Appropriate to Situation - ADL/IADL Self Feeding: Supervision, Verbal Cues, Set-up Help Grooming: Verbal Cues, Set-up Help, Minimal Assistance Bathing-Upper Extremity: Maximum Assistance Bathing-Lower Extremity: Maximum Assistance Dressing-Upper Extremity: Maximum Assistance Dressing-Lower Extremity: Dependent - Sitting Balance Static Sitting: Moderate Assistance Dynamic Sitting: Unable to assess/perform - Transfers Wheelchair to Bed Transfers: Maximum Assistance Toilet Transfers: Dependent - Wheelchair Management Level of Assistance: Dependent Distance (ft.): 0 - Upper Extremity Status Right Upper Extremity Comment: WFL Left Upper Extremity Comment: Pt noted to have hemiplegic LUE, pt with approx 75 * shoulder flexion, 45* shoulder extension, pt noted to have apraxia and difficulty motor planning to following commands, however pt passively WFL, pt does complain of shoulder discomfort. No noted scapular deformity, possibly half finger subluxation however able to approximate without pain. - Pain Pain (assessed during therapy session): 4 Alleviating Techniques: Inactivity Comment: L shoulder intermittent - Insight/Carryover Insight/Carryover: Fair - Patient/Family Education Comment: Role of OT, Plan of care, stroke recovery, L neglect, proper positioning, subluxation, compensatory strategies, safety, transfers, bed mobility, ADLs. - Assessment/Plan Assessment: Pt continues to have poor trunk control and sitting balance, impaired motor control, L hemiplegia, L neglect, impulsivity and diffiuclty with terminating task. Pt remains a significant caregiver burden and requires continued skilled OT services to address performance deficits in order to maximize indendence with ADLs and functional mobility - Goals Timeframe: 3 weeks Goals: increase LUE to 1/2 muscle grade. MIN A with bed to commode transfer. MIN A with UE dressing. MIN A with bed mobility - Provider Therapist: Bridgette Grace License Number: [id number] Speech Therapy - Consult Information Patient on Program: Yes Medical Diagnosis: CVA Treatment Diagnosis: -mild-moderate cognitive deficits. -mild dysarthria/voice disorder - Assessment Problem Solving Impairment: Mild Memory Impairment: Moderate Speech/Articulation Impairment: Mild - Plan Assessment: Pt continues to have poor trunk control and sitting balance, impaired motor control, L hemiplegia, L neglect, impulsivity and diffiuclty with terminating task. Pt remains a significant caregiver burden and requires continued skilled OT services to address performance deficits in order to maximize indendence with ADLs and functional mobility - Provider Therapist: Bharati Cho License Number: [id number] Recreational Therapy - Participation Participation: Participates in Individual and/or Group Sessions - Attendance Attendance: 3-5 times per week - Activities Leisure Activities: Cards and Games - Socialization Level of Socialization: Initiates/interacts freely with care givers and peer - Diversional Time Diversional Time: socializing - Assessment Assessment/Plan: Pt continues to have poor trunk control and sitting balance, impaired motor control, L hemiplegia, L neglect, impulsivity and diffiuclty with terminating task. Pt remains a significant caregiver burden and requires continued skilled OT services to address performance deficits in order to maximize indendence with ADLs and functional mobility - Provider Therapist: Ling Hairston, [employer]RB[employer] DES[employer]ER #[id number] Nutrition - Current Diet Current Diet/ Supplement/ Feedings: Heart healthy - Appetite Percent Meal Consumed: 50-74% - Comments Comments: safety transfer, post CVA care - Assessment/Goals/Time Frame Assessment/Goals/Time Frame: None - Provider Provider: Nancy Jeffries RD Case Management - Psychosocial Assessment Support Systems: Kalee Heller (spouse)- [phone], Psychological Interventions/Needs: Patient is alert with poor safety awareness and insight into impairments Discharge Concerns: Patient currently requiring max-total assist for bed mobility, transfers and ADLs. Patient with 17 steps to negotiate at home. Patient presents with impaired trunk control and sitting balance. Patient/Family Meeting: CM met with patient/family and rehab team Intervention/Goal/Outcome:: 1. Plan: DIEGO? due to current impairments in funciton. CM to discuss DIEGO and provided list of options. 2. caregiver training. 3. continued education and emotional support. 4. continued stay auth, LAD: 09/03, 5. tentative discharge date: 09/16/2016 - Discharge Plan Discharge Plan: Subacute care - Provider Provider: ROM Albright, SURVEY DATA TECHNICIAN License Number: [id number] Rehabilitation Plan - Treatment Plan Treatment Plan: Physical Therapy, Occupational Therapy, Speech, Dietary, Patient /Family Education - Recommendation Recommendation: Physical Therapy, Occupational Therapy, Speech, Dietary, Patient /Family Education - Discharge Plan Discharge to: Subacute (September 16)
[2016-09-04] MEDS ORDERED: Lactulose 10 gm/15 ml Syrup PO PRN (18:04)
--- NOTE | 2016-09-04 18:04 | CP.PCM.PN ---
Subjective - Date & Time of Evaluation Date of Evaluation: 09/04/16 Time of Evaluation: 18:02 - Subjective Subjective: PATIENT TOLERATING PT WELL COMPLAINS OF SOME CONSTIPATION, WILL GIVE LACTULOSE WELL DULCOLAX SUPP OTHERWISE NO COMPLAINTS HD STABLE NAD Objective - Vital Signs/Intake and Output Vital Signs (last 24 hours): Temp Pulse Resp BP Pulse Ox 98.2 F 67 20 128/84 96 09/04/16 09:00 09/04/16 09:00 09/04/16 09:00 09/04/16 09:00 09/04/16 08:29 - Medications Medications: Current Medications Acetaminophen (Tylenol 325mg Tab) 650 mg PO Q4 PRN PRN Reason: Headache Last Admin: 08/31/16 13:05 Dose: 650 mg Amlodipine Besylate (Norvasc) 10 mg PO DAILY [facility] Last Admin: 09/04/16 08:51 Dose: 10 mg Bisacodyl (Dulcolax) 10 mg [place] DAILY PRN PRN Reason: Constipation Last Admin: 08/30/16 17:02 Dose: 10 mg Docusate Sodium (Colace) 100 mg PO BID [facility] Last Admin: 09/04/16 16:28 Dose: 100 mg Famotidine (Pepcid) 20 mg PO BID [facility] Last Admin: 09/04/16 16:28 Dose: 20 mg Metoprolol Tartrate (Lopressor) 25 mg PO Q12 [facility] Last Admin: 09/04/16 08:51 Dose: 25 mg - Labs Labs: 08/24/16 05:30 08/24/16 05:30 - Constitutional Appears: Non-toxic, No Acute Distress - Head Exam Head Exam: ATRAUMATIC, NORMAL INSPECTION, NORMOCEPHALIC - Eye Exam Eye Exam: EOMI, Normal appearance, PERRL Pupil Exam: NORMAL ACCOMODATION, PERRL - ENT Exam ENT Exam: Mucous Membranes Moist, Normal Exam - Neck Exam Neck Exam: Normal Inspection. absent: Lymphadenopathy - Respiratory Exam Respiratory Exam: Clear to Ausculation Bilateral, NORMAL BREATHING PATTERN - Cardiovascular Exam Cardiovascular Exam: REGULAR RHYTHM, +S1, +S2. absent: Murmur - GI/Abdominal Exam GI & Abdominal Exam: Soft, Normal Bowel Sounds. absent: Tenderness - Extremities Exam Extremities Exam: Normal Capillary Refill. absent: Joint Swelling - Back Exam Back Exam: absent: CVA tenderness (L), CVA tenderness (R) - Neurological Exam Neurological Exam: Alert, Awake - Psychiatric Exam Psychiatric exam: Normal Affect, Normal Mood - Skin Skin Exam: Dry, Normal Color, Warm Assessment and Plan - Assessment and Plan (Free Text) Plan: 70 yo male with history of HTN was admitted at [facility] after falling in the bathroom on 08/19/2016 because of left sided weakness. He was immediately brought to the ER where code stroke was activated. CT scan of the brain was consistent with right small thalamic bleed. Neurosurgery was consulted and recommended no surgical intervention.Patient was transferred to [facility] and admitted to Acute Rehab for PT/OT. 1. CVA (cerebrovascular accident due to intracerebral hemorrhage) Dr Lion on physiatry consult continue PT/OT BP control Dr Metz on neuro consult 2. Hypertension BP stable continue Norvasc and Metoprolol 3.DVt prophylaxis SCD CONSTIPATION LACTULOSE AND DULCOLAX SUPP
--- NOTE | 2016-09-05 20:57 | CP.PCM.PN ---
Subjective - Date & Time of Evaluation Date of Evaluation: 09/04/16 Time of Evaluation: 11:00 - Subjective Subjective: patient freindly, alert in no acute distress, no complaints of shoulder pain Objective - Vital Signs/Intake and Output Vital Signs (last 24 hours): Temp Pulse Resp BP Pulse Ox 97.8 F 78 20 123/70 96 09/05/16 08:21 09/05/16 16:02 09/05/16 08:21 09/05/16 08:34 09/05/16 16:02 - Medications Medications: Current Medications Acetaminophen (Tylenol 325mg Tab) 650 mg PO Q4 PRN PRN Reason: Headache Last Admin: 08/31/16 13:05 Dose: 650 mg Amlodipine Besylate (Norvasc) 10 mg PO DAILY [facility] Last Admin: 09/05/16 08:34 Dose: 10 mg Bisacodyl (Dulcolax) 10 mg [place] DAILY PRN PRN Reason: Constipation Last Admin: 09/04/16 13:20 Dose: 10 mg Docusate Sodium (Colace) 100 mg PO BID [facility] Last Admin: 09/05/16 16:48 Dose: 100 mg Famotidine (Pepcid) 20 mg PO BID [facility] Last Admin: 09/05/16 16:48 Dose: 20 mg Lactulose (Enulose) 10 gm PO DAILY PRN PRN Reason: Constipation Metoprolol Tartrate (Lopressor) 25 mg PO Q12 [facility] Last Admin: 09/05/16 08:33 Dose: 25 mg - Labs Labs: 08/24/16 05:30 08/24/16 05:30 - Head Exam Head Exam: ATRAUMATIC, NORMAL INSPECTION, NORMOCEPHALIC - Eye Exam Eye Exam: EOMI, Normal appearance Pupil Exam: NORMAL ACCOMODATION - ENT Exam ENT Exam: Mucous Membranes Moist, Normal Exam - Neck Exam Neck Exam: Normal Inspection - Respiratory Exam Respiratory Exam: Clear to Ausculation Bilateral, NORMAL BREATHING PATTERN - Cardiovascular Exam Cardiovascular Exam: REGULAR RHYTHM - GI/Abdominal Exam GI & Abdominal Exam: Normal Bowel Sounds - Rectal Exam Rectal Exam: NORMAL INSPECTION - Exam External exam: NORMAL EXTERNAL EXAM - Extremities Exam Extremities Exam: Normal Capillary Refill, Normal Inspection - Back Exam Back Exam: NORMAL INSPECTION - Neurological Exam Neurological Exam: Alert, Awake Neuro motor strength exam: Left Upper Extremity: 2/1, Right Upper Extremity: 3, Left Lower Extremity: 2/1, Right Lower Extremity: 3 - Psychiatric Exam Psychiatric exam: Normal Affect, Normal Mood Assessment and Plan (1) CVA (cerebrovascular accident due to intracerebral hemorrhage) Assessment & Plan: status post team conference, discussed at length need s of patient, goals for [place] in toileting, other issues with balance equipment need,bowel program. also present in room, need for additional subacute rehab Status: Acute (2) Basal ganglia hemorrhage Status: Acute (3) Bleeding gums Status: Acute (4) Hypertension Status: Chronic
--- NOTE | 2016-09-06 11:24 | CP.PCM.PN ---
Subjective - Date & Time of Evaluation Date of Evaluation: 09/06/16 Time of Evaluation: 09:00 - Subjective Subjective: no acute neck or back pain Objective - Vital Signs/Intake and Output Vital Signs (last 24 hours): Temp Pulse Resp BP Pulse Ox 96.0 F L 63 18 107/67 95 09/06/16 07:58 09/06/16 08:10 09/06/16 07:58 09/06/16 08:10 09/06/16 07:58 - Medications Medications: Current Medications Acetaminophen (Tylenol 325mg Tab) 650 mg PO Q4 PRN PRN Reason: Headache Last Admin: 08/31/16 13:05 Dose: 650 mg Amlodipine Besylate (Norvasc) 10 mg PO DAILY [facility] Last Admin: 09/06/16 08:10 Dose: Not Given Bisacodyl (Dulcolax) 10 mg [place] DAILY PRN PRN Reason: Constipation Last Admin: 09/04/16 13:20 Dose: 10 mg Docusate Sodium (Colace) 100 mg PO BID [facility] Last Admin: 09/06/16 08:10 Dose: 100 mg Famotidine (Pepcid) 20 mg PO BID [facility] Last Admin: 09/06/16 08:11 Dose: 20 mg Lactulose (Enulose) 10 gm PO DAILY PRN PRN Reason: Constipation Metoprolol Tartrate (Lopressor) 25 mg PO Q12 [facility] Last Admin: 09/06/16 08:10 Dose: Not Given - Labs Labs: 08/24/16 05:30 08/24/16 05:30 - Head Exam Head Exam: ATRAUMATIC, NORMAL INSPECTION, NORMOCEPHALIC - Eye Exam Eye Exam: EOMI, Normal appearance, PERRL Pupil Exam: NORMAL ACCOMODATION - ENT Exam ENT Exam: Mucous Membranes Moist, Normal Exam - Neck Exam Neck Exam: Normal Inspection - Respiratory Exam Respiratory Exam: NORMAL BREATHING PATTERN - Cardiovascular Exam Cardiovascular Exam: REGULAR RHYTHM - GI/Abdominal Exam GI & Abdominal Exam: Normal Bowel Sounds - Rectal Exam Rectal Exam: NORMAL INSPECTION - Exam External exam: NORMAL EXTERNAL EXAM - Extremities Exam Extremities Exam: Full ROM, Normal Capillary Refill - Back Exam Back Exam: NORMAL INSPECTION - Neurological Exam Neurological Exam: Alert, Awake Neuro motor strength exam: Left Upper Extremity: 2/1, Right Upper Extremity: 4, Left Lower Extremity: 2/1, Right Lower Extremity: 4 - Psychiatric Exam Psychiatric exam: Normal Affect, Normal Mood - Skin Skin Exam: Dry, Intact Assessment and Plan (1) CVA (cerebrovascular accident due to intracerebral hemorrhage) Assessment & Plan: range of motion strenghtening transfers and gait traing pt ot rec speech therapy Status: Acute (2) Basal ganglia hemorrhage Status: Acute (3) Bleeding gums Status: Acute (4) Hypertension Status: Chronic
--- NOTE | 2016-09-06 11:27 | CP.PCM.PN ---
Subjective - Date & Time of Evaluation Date of Evaluation: 09/05/16 Time of Evaluation: 17:00 - Subjective Subjective: no acute neck or back pain, still with left sided weakness Objective - Vital Signs/Intake and Output Vital Signs (last 24 hours): Temp Pulse Resp BP Pulse Ox 96.0 F L 63 18 107/67 95 09/06/16 07:58 09/06/16 08:10 09/06/16 07:58 09/06/16 08:10 09/06/16 07:58 - Medications Medications: Current Medications Acetaminophen (Tylenol 325mg Tab) 650 mg PO Q4 PRN PRN Reason: Headache Last Admin: 08/31/16 13:05 Dose: 650 mg Amlodipine Besylate (Norvasc) 10 mg PO DAILY [facility] Last Admin: 09/06/16 08:10 Dose: Not Given Bisacodyl (Dulcolax) 10 mg [place] DAILY PRN PRN Reason: Constipation Last Admin: 09/04/16 13:20 Dose: 10 mg Docusate Sodium (Colace) 100 mg PO BID [facility] Last Admin: 09/06/16 08:10 Dose: 100 mg Famotidine (Pepcid) 20 mg PO BID [facility] Last Admin: 09/06/16 08:11 Dose: 20 mg Lactulose (Enulose) 10 gm PO DAILY PRN PRN Reason: Constipation Metoprolol Tartrate (Lopressor) 25 mg PO Q12 [facility] Last Admin: 09/06/16 08:10 Dose: Not Given - Labs Labs: 08/24/16 05:30 08/24/16 05:30 - Head Exam Head Exam: ATRAUMATIC, NORMAL INSPECTION, NORMOCEPHALIC - Eye Exam Eye Exam: EOMI, Normal appearance, PERRL Pupil Exam: NORMAL ACCOMODATION - ENT Exam ENT Exam: Mucous Membranes Moist, Normal Exam - Neck Exam Neck Exam: Normal Inspection - Respiratory Exam Respiratory Exam: NORMAL BREATHING PATTERN - Cardiovascular Exam Cardiovascular Exam: REGULAR RHYTHM - GI/Abdominal Exam GI & Abdominal Exam: Normal Bowel Sounds - Rectal Exam Rectal Exam: NORMAL INSPECTION - Exam External exam: NORMAL EXTERNAL EXAM - Extremities Exam Extremities Exam: Normal Capillary Refill - Back Exam Back Exam: NORMAL INSPECTION - Neurological Exam Neurological Exam: Alert, Awake Neuro motor strength exam: Left Upper Extremity: 2/1, Right Upper Extremity: 3, Left Lower Extremity: 2/1, Right Lower Extremity: 3 - Psychiatric Exam Psychiatric exam: Normal Affect, Normal Mood - Skin Skin Exam: Dry, Intact Assessment and Plan (1) CVA (cerebrovascular accident due to intracerebral hemorrhage) Assessment & Plan: plan for range of motion, strenghtening, transfers and gait training consider the automatic lazy chair for person as family against a hospital bed continue with equipment issues Status: Acute (2) Basal ganglia hemorrhage Status: Acute (3) Bleeding gums Status: Acute (4) Hypertension Status: Chronic
--- NOTE | 2016-09-06 14:16 | CP.PCM.PN ---
Subjective - Date & Time of Evaluation Date of Evaluation: 09/06/16 Time of Evaluation: 14:08 - Subjective Subjective: PATIENT PARTICIPATING IN PT WELL NO COMPLAINTS HD STABLE Objective - Vital Signs/Intake and Output Vital Signs (last 24 hours): Temp Pulse Resp BP Pulse Ox 96.0 F L 63 18 107/67 95 09/06/16 07:58 09/06/16 08:10 09/06/16 07:58 09/06/16 08:10 09/06/16 07:58 - Medications Medications: Current Medications Acetaminophen (Tylenol 325mg Tab) 650 mg PO Q4 PRN PRN Reason: Headache Last Admin: 08/31/16 13:05 Dose: 650 mg Amlodipine Besylate (Norvasc) 10 mg PO DAILY [facility] Last Admin: 09/06/16 08:10 Dose: Not Given Bisacodyl (Dulcolax) 10 mg [place] DAILY PRN PRN Reason: Constipation Last Admin: 09/04/16 13:20 Dose: 10 mg Docusate Sodium (Colace) 100 mg PO BID [facility] Last Admin: 09/06/16 08:10 Dose: 100 mg Famotidine (Pepcid) 20 mg PO BID [facility] Last Admin: 09/06/16 08:11 Dose: 20 mg Lactulose (Enulose) 10 gm PO DAILY PRN PRN Reason: Constipation Metoprolol Tartrate (Lopressor) 25 mg PO Q12 [facility] Last Admin: 09/06/16 08:10 Dose: Not Given - Labs Labs: 08/24/16 05:30 08/24/16 05:30 - Constitutional Appears: Non-toxic, No Acute Distress - Head Exam Head Exam: ATRAUMATIC, NORMOCEPHALIC - Eye Exam Eye Exam: EOMI, Normal appearance, PERRL Pupil Exam: NORMAL ACCOMODATION Assessment and Plan - Assessment and Plan (Free Text) Plan: 70 yo male with history of HTN was admitted at [facility] after falling in the bathroom on 08/19/2016 because of left sided weakness. He was immediately brought to the ER where code stroke was activated. CT scan of the brain was consistent with right small thalamic bleed. Neurosurgery was consulted and recommended no surgical intervention.Patient was transferred to [facility] and admitted to Acute Rehab for PT/OT. 1. CVA (cerebrovascular accident due to intracerebral hemorrhage) Dr Lion on physiatry consult continue PT/OT BP control Dr Metz on neuro consult 2. Hypertension BP stable continue Norvasc and Metoprolol 3.DVt prophylaxis SCD CONSTIPATION LACTULOSE AND DULCOLAX SUPP
--- NOTE | 2016-09-08 21:01 | CP.PCM.PN ---
Subjective - Date & Time of Evaluation Date of Evaluation: 09/07/16 Time of Evaluation: 14:00 - Subjective Subjective: patient is feeling fine, no acute complaints at present Objective - Vital Signs/Intake and Output Vital Signs (last 24 hours): Temp Pulse Resp BP Pulse Ox 97.5 F L 68 20 109/71 96 09/08/16 20:00 09/08/16 20:00 09/08/16 20:00 09/08/16 20:00 09/08/16 20:00 - Medications Medications: Current Medications Acetaminophen (Tylenol 325mg Tab) 650 mg PO Q4 PRN PRN Reason: Headache Last Admin: 08/31/16 13:05 Dose: 650 mg Amlodipine Besylate (Norvasc) 10 mg PO DAILY [facility] Last Admin: 09/08/16 09:03 Dose: 10 mg Bisacodyl (Dulcolax) 10 mg [place] DAILY PRN PRN Reason: Constipation Last Admin: 09/04/16 13:20 Dose: 10 mg Docusate Sodium (Colace) 100 mg PO BID [facility] Last Admin: 09/08/16 17:08 Dose: 100 mg Famotidine (Pepcid) 20 mg PO BID [facility] Last Admin: 09/08/16 17:08 Dose: 20 mg Lactulose (Enulose) 10 gm PO DAILY PRN PRN Reason: Constipation Metoprolol Tartrate (Lopressor) 25 mg PO Q12 [facility] Last Admin: 09/08/16 09:04 Dose: 25 mg - Labs Labs: 08/24/16 05:30 08/24/16 05:30 - Head Exam Head Exam: ATRAUMATIC, NORMAL INSPECTION, NORMOCEPHALIC - Eye Exam Eye Exam: EOMI, Normal appearance Pupil Exam: NORMAL ACCOMODATION, PERRL - ENT Exam ENT Exam: Mucous Membranes Moist - Neck Exam Neck Exam: Normal Inspection - Respiratory Exam Respiratory Exam: Clear to Ausculation Bilateral, NORMAL BREATHING PATTERN - Cardiovascular Exam Cardiovascular Exam: REGULAR RHYTHM - GI/Abdominal Exam GI & Abdominal Exam: Normal Bowel Sounds - Rectal Exam Rectal Exam: NORMAL INSPECTION - Exam External exam: NORMAL EXTERNAL EXAM - Extremities Exam Extremities Exam: Normal Capillary Refill, Normal Inspection - Back Exam Back Exam: NORMAL INSPECTION - Neurological Exam Neurological Exam: Alert, Awake Neuro motor strength exam: Left Upper Extremity: 2/1, Right Upper Extremity: 3, Left Lower Extremity: 2/1, Right Lower Extremity: 3 - Psychiatric Exam Psychiatric exam: Normal Affect, Normal Mood - Skin Skin Exam: Normal Color Assessment and Plan (1) CVA (cerebrovascular accident due to intracerebral hemorrhage) Assessment & Plan: plan for physical, occupational and rec therapy continue to monitor skin, bowel Status: Acute (2) Basal ganglia hemorrhage Status: Acute (3) Bleeding gums Status: Acute (4) Hypertension Status: Chronic
--- NOTE | 2016-09-09 20:52 | CP.PCM.PN ---
Subjective - Date & Time of Evaluation Date of Evaluation: 09/09/16 Time of Evaluation: 10:20 - Subjective Subjective: Pt seen and examined. Denied any complaint Objective - Vital Signs/Intake and Output Vital Signs (last 24 hours): Temp Pulse Resp BP Pulse Ox 97 F L 68 20 113/68 98 09/09/16 20:34 09/09/16 20:34 09/09/16 20:34 09/09/16 20:34 09/09/16 20:34 - Medications Medications: Current Medications Acetaminophen (Tylenol 325mg Tab) 650 mg PO Q4 PRN PRN Reason: Headache Last Admin: 08/31/16 13:05 Dose: 650 mg Amlodipine Besylate (Norvasc) 10 mg PO DAILY [facility] Last Admin: 09/09/16 08:28 Dose: 10 mg Bisacodyl (Dulcolax) 10 mg [place] DAILY PRN PRN Reason: Constipation Last Admin: 09/09/16 17:35 Dose: 10 mg Docusate Sodium (Colace) 100 mg PO BID [facility] Last Admin: 09/09/16 17:34 Dose: 100 mg Famotidine (Pepcid) 20 mg PO BID [facility] Last Admin: 09/09/16 17:35 Dose: 20 mg Lactulose (Enulose) 10 gm PO DAILY PRN PRN Reason: Constipation Metoprolol Tartrate (Lopressor) 25 mg PO Q12 [facility] Last Admin: 09/09/16 20:34 Dose: 25 mg - Labs Labs: 08/24/16 05:30 08/24/16 05:30 - Constitutional Appears: No Acute Distress - Head Exam Head Exam: ATRAUMATIC - Eye Exam Eye Exam: absent: Scleral icterus - ENT Exam ENT Exam: Mucous Membranes Moist - Neck Exam Neck Exam: absent: Meningismus - Cardiovascular Exam Cardiovascular Exam: REGULAR RHYTHM, +S1, +S2 - GI/Abdominal Exam GI & Abdominal Exam: Soft. absent: Tenderness - Rectal Exam Rectal Exam: Deferred - Neurological Exam Neurological Exam: Alert, Oriented x3 - Psychiatric Exam Psychiatric exam: Normal Affect - Skin Skin Exam: Dry, Intact Assessment and Plan (1) CVA (cerebrovascular accident due to intracerebral hemorrhage) Status: Acute (2) Hypertension Status: Chronic - Assessment and Plan (Free Text) Assessment: 70 yo male with history of HTN was admitted at [facility] after falling in the bathroom on 08/19/2016 because of left sided weakness. He was immediately brought to the ER where code stroke was activated. CT scan of the brain was consistent with right small thalamic bleed. Neurosurgery was consulted and recommended no surgical intervention. Patient was transferred to [facility] and admitted to Acute Rehab for PT/OT. 1. CVA (cerebrovascular accident due to intracerebral hemorrhage) Dr Lion on physiatry consult continue PT/OT BP control Dr Metz on neuro consult 2. Hypertension BP stable continue Norvasc and Metoprolol
--- NOTE | 2016-09-10 09:51 | CP.PCM.PN ---
Subjective - Date & Time of Evaluation Date of Evaluation: 09/09/16 Time of Evaluation: 11:00 - Subjective Subjective: patient with no acute complaints of pain Objective - Vital Signs/Intake and Output Vital Signs (last 24 hours): Temp Pulse Resp BP Pulse Ox 97 F L 73 20 127/86 98 09/09/16 20:34 09/10/16 08:05 09/09/16 20:34 09/10/16 08:06 09/09/16 20:34 - Medications Medications: Current Medications Acetaminophen (Tylenol 325mg Tab) 650 mg PO Q4 PRN PRN Reason: Headache Last Admin: 08/31/16 13:05 Dose: 650 mg Amlodipine Besylate (Norvasc) 10 mg PO DAILY [facility] Last Admin: 09/10/16 08:06 Dose: 10 mg Bisacodyl (Dulcolax) 10 mg [place] DAILY PRN PRN Reason: Constipation Last Admin: 09/09/16 17:35 Dose: 10 mg Docusate Sodium (Colace) 100 mg PO BID [facility] Last Admin: 09/10/16 08:04 Dose: 100 mg Famotidine (Pepcid) 20 mg PO BID [facility] Last Admin: 09/10/16 08:04 Dose: 20 mg Lactulose (Enulose) 10 gm PO DAILY PRN PRN Reason: Constipation Metoprolol Tartrate (Lopressor) 25 mg PO Q12 [facility] Last Admin: 09/10/16 08:05 Dose: 25 mg - Labs Labs: 08/24/16 05:30 08/24/16 05:30 - Head Exam Head Exam: ATRAUMATIC, NORMAL INSPECTION, NORMOCEPHALIC - Eye Exam Eye Exam: EOMI, Normal appearance Pupil Exam: NORMAL ACCOMODATION, PERRL - ENT Exam ENT Exam: Mucous Membranes Moist - Neck Exam Neck Exam: Full ROM, Normal Inspection - Respiratory Exam Respiratory Exam: NORMAL BREATHING PATTERN - Cardiovascular Exam Cardiovascular Exam: REGULAR RHYTHM - GI/Abdominal Exam GI & Abdominal Exam: Normal Bowel Sounds - Rectal Exam Rectal Exam: NORMAL INSPECTION - Exam External exam: NORMAL EXTERNAL EXAM - Extremities Exam Extremities Exam: Normal Capillary Refill, Normal Inspection - Back Exam Back Exam: NORMAL INSPECTION - Neurological Exam Neurological Exam: Alert, Awake, Oriented x3 Neuro motor strength exam: Left Upper Extremity: 2/1, Right Upper Extremity: 3, Left Lower Extremity: 2/1, Right Lower Extremity: 3 - Psychiatric Exam Psychiatric exam: Normal Affect - Skin Skin Exam: Normal Color Assessment and Plan (1) CVA (cerebrovascular accident due to intracerebral hemorrhage) Assessment & Plan: to continue with physical, occupationa, speech and rec therapy team conference for friday Status: Acute (2) Basal ganglia hemorrhage Status: Acute (3) Bleeding gums Status: Acute (4) Hypertension Status: Chronic
--- NOTE | 2016-09-11 12:07 | PSY.TMCNF ---
Nursing - Vital Signs Vital Signs (Last 8 hours): Vital Signs 09/11/16 09/11/16 09/11/16 09:00 09:05 09:06 Temperature 96.0 F L Pulse Rate 69 69 Respiratory 20 Rate Blood Pressure 114/58 L 114/58 L 114/58 L 09/11/16 09:35 Temperature 96 F L Pulse Rate 69 Respiratory 20 Rate Blood Pressure 114/58 L Pain: 0 - Precautions: Precautions: Fall Prevention, Aspiration - Medications/Other Issues Comment: pt at moderate nutritional risk. Goal:1. Pt to consume 75-100% of meals( met, continue). Follow-up due on 09/16/2016 - Consults Comment: Neuro , Dr. Amin-Gibilisco - Toileting Toileting: Maximal Assistance - Bladder Management Bladder Pattern: Normal Voiding Method: Urinal Bladder Management: Maximal Assistance Frequency of Accidents: 0 - Bowel Management Bowel Pattern: Normal Comment: continent,use bedpan Bowel Management: Maximal Assistance Frequency of Accidents: 0 - Transfers Transfers: Dependent - ADL's ADL's: Maximal Assistance - Pain Management Comments: denies - Patient/Family Teaching Comments: CARE POST CVA AND SAFETY PRECAUTIONS - Goals/Time Frame Comments: PER MULTIDISCIPLINARY CARE PLAN GOALS - Provider Provider: SANDRA MAHONEYN RN CRRN Physical Therapy - Bed Mobility Bed Mobility: Verbal Cues, Moderate Assistance - Transfers Sit to Stand: Verbal Cues, Minimal Assistance - Ambulation Level of Assistance: Verbal Cues, Moderate Assistance, Maximum Assistance Distance (ft.): 15 Assistive Devices: Wide base quad cane - Stair Negotiation Stairs: Level of Assistance: Not Tested - Standing Balance Static Stand: Maximal Assistance Dynamic Stand: Unable to assess/perform - Pain Pain (assessed during therapy session): 4 Management Techniques: Inactivity Comment: L shoulder intermittent - Insight/Carryover Insight/Carryover: Fair - Patient/Family Education Comment: Education on safety, functional transfers, compensatory strategies, Neglect and stroke recovery. - Assessment/Plan Assessment: Pt continues to make progress with mobility and LUE return. Pt requires continued OT tx to address L hemiplegia, coordination/AROM/Strength, balance and L inattention to maximize indepndence with ADLs and functional mobility - Goals Timeframe: 1 week Goals: pt will be MAX A with toileting. pt will be MOD A with toilet txfer. pt will be MIN A with UE dressing. pt will be MAX A with LE dressing - Provider Therapist: jaun License Number: [id number] Occupational Therapy - Arousal/Attention/Orientation Patient Orientation: Person, Place, Time, Appropriate to Age, Appropriate to Situation - ADL/IADL Self Feeding: Supervision, Verbal Cues, Set-up Help Grooming: Supervision, Verbal Cues, Set-up Help Bathing-Upper Extremity: Maximum Assistance Bathing-Lower Extremity: Maximum Assistance Dressing-Upper Extremity: Moderate Assistance Dressing-Lower Extremity: Dependent - Sitting Balance Static Sitting: Minimal Assistance Dynamic Sitting: Maximal Assistance - Transfers Wheelchair to Bed Transfers: Maximum Assistance Toilet Transfers: Dependent - Wheelchair Management Level of Assistance: Dependent Distance (ft.): 0 - Upper Extremity Status Right Upper Extremity Comment: WFL Left Upper Extremity Comment: Pt noted to have hemiplegic LUE, pt with approx 75 * shoulder flexion, 45* shoulder extension, pt noted to have apraxia and difficulty motor planning to following commands, however pt passively WFL, pt does complain of shoulder discomfort. No noted scapular deformity, possibly half finger subluxation however able to approximate without pain. - Pain Pain (assessed during therapy session): 4 Alleviating Techniques: Inactivity Comment: L shoulder intermittent - Insight/Carryover Insight/Carryover: Fair - Patient/Family Education Comment: Education on safety, functional transfers, compensatory strategies, Neglect and stroke recovery. - Assessment/Plan Assessment: Pt continues to make progress with mobility and LUE return. Pt requires continued OT tx to address L hemiplegia, coordination/AROM/Strength, balance and L inattention to maximize indepndence with ADLs and functional mobility - Goals Timeframe: 1 week Goals: pt will be MAX A with toileting. pt will be MOD A with toilet txfer. pt will be MIN A with UE dressing. pt will be MAX A with LE dressing - Provider Therapist: Bridgette Grace License Number: [id number] Speech Therapy - Consult Information Patient on Program: Yes Medical Diagnosis: CVA Treatment Diagnosis: -mild-moderate cognitive deficits. -mild dysarthria/voice disorder - Assessment Expressive Language Impairment: Mild Problem Solving Impairment: Mild Memory Impairment: Moderate Speech/Articulation Impairment: Mild - Plan Assessment: Pt continues to make progress with mobility and LUE return. Pt requires continued OT tx to address L hemiplegia, coordination/AROM/Strength, balance and L inattention to maximize indepndence with ADLs and functional mobility - Provider Therapist: Bel Silva License Number: [id number] Recreational Therapy - Participation Participation: Participates in Individual and/or Group Sessions - Attendance Attendance: 3-5 times per week - Activities Leisure Activities: Cards and Games - Socialization Level of Socialization: Initiates/interacts freely with care givers and peer - Diversional Time Diversional Time: socializing - Assessment Assessment/Plan: Pt continues to make progress with mobility and LUE return. Pt requires continued OT tx to address L hemiplegia, coordination/AROM/Strength, balance and L inattention to maximize indepndence with ADLs and functional mobility - Provider Therapist: Ling Hairston, [employer] #[id number] Nutrition - Current Diet Current Diet/ Supplement/ Feedings: heart healthy - Appetite Percent Meal Consumed: 75-100% - Comments Comments: CARE POST CVA AND SAFETY PRECAUTIONS - Assessment/Goals/Time Frame Assessment/Goals/Time Frame: pt at moderate nutritional risk. Goal:1. Pt to consume 75-100% of meals( met, continue). Follow-up due on 09/16/2016 - Provider Provider: Nancy Jeffries RD Case Management - Psychosocial Assessment Support Systems: Kalee Heller (spouse)- [phone], Psychological Interventions/Needs: Patient is alert with poor safety awareness and insight into impairments Discharge Concerns: Patient continues to requiring max-total assist for bed mobility, transfers and ADLs. Patient with 17 steps to negotiate at home. Patient presents with impaired trunk control, sitting balance and safety awareness Patient/Family Meeting: CM met with patient/family and rehab team Intervention/Goal/Outcome:: 1. Plan: [facility]- long discussion held with spouse regarding patient's current impairments and readiness to return home. Spouse understands patient's current deficits and in agreement with rehab teams' recommendation for [facility]- list provided to spouse, encouraged to call/tour and provide top 3 options- spouse preferring [facility] as first choice, CM to follow up for secondary choices. 2. caregiver training. 3. continued education and emotional support. 4. continued stay auth, LAD: 09/10, 5. tentative discharge date: 09/16/2016 - Discharge Plan Discharge Plan: Subacute care - Provider Provider: ROM Albright, [employer] License Number: [id number] Rehabilitation Plan - Treatment Plan Treatment Plan: Physical Therapy, Occupational Therapy, Speech, Dietary, Patient /Family Education - Recommendation Recommendation: Physical Therapy, Occupational Therapy, Speech, Dietary, Patient /Family Education - Discharge Plan Discharge to: Subacute
--- NOTE | 2016-09-11 12:30 | CP.PCM.PN ---
Subjective - Date & Time of Evaluation Date of Evaluation: 09/11/16 Time of Evaluation: 11:00 - Subjective Subjective: no acute complaints at present Objective - Vital Signs/Intake and Output Vital Signs (last 24 hours): Temp Pulse Resp BP Pulse Ox 96 F L 69 20 114/58 L 95 09/11/16 09:35 09/11/16 09:35 09/11/16 09:35 09/11/16 09:35 09/10/16 20:11 - Medications Medications: Current Medications Acetaminophen (Tylenol 325mg Tab) 650 mg PO Q6 PRN PRN Reason: Headache Amlodipine Besylate (Norvasc) 10 mg PO DAILY [facility] Last Admin: 09/11/16 09:06 Dose: 10 mg Bisacodyl (Dulcolax) 10 mg [place] DAILY PRN PRN Reason: Constipation Last Admin: 09/09/16 17:35 Dose: 10 mg Docusate Sodium (Colace) 100 mg PO BID [facility] Last Admin: 09/11/16 09:05 Dose: 100 mg Famotidine (Pepcid) 20 mg PO BID [facility] Last Admin: 09/11/16 09:06 Dose: 20 mg Lactulose (Enulose) 10 gm PO DAILY PRN PRN Reason: Constipation Metoprolol Tartrate (Lopressor) 25 mg PO Q12 [facility] Last Admin: 09/11/16 09:05 Dose: 25 mg - Labs Labs: 08/24/16 05:30 08/24/16 05:30 - Head Exam Head Exam: ATRAUMATIC, NORMAL INSPECTION, NORMOCEPHALIC - Eye Exam Eye Exam: EOMI, Normal appearance, PERRL Pupil Exam: NORMAL ACCOMODATION - ENT Exam ENT Exam: Mucous Membranes Moist, Normal Exam - Respiratory Exam Respiratory Exam: NORMAL BREATHING PATTERN - Cardiovascular Exam Cardiovascular Exam: REGULAR RHYTHM - GI/Abdominal Exam GI & Abdominal Exam: Normal Bowel Sounds - Rectal Exam Rectal Exam: NORMAL INSPECTION - Exam External exam: NORMAL EXTERNAL EXAM - Extremities Exam Extremities Exam: Normal Capillary Refill, Normal Inspection - Neurological Exam Neurological Exam: Alert, Awake Neuro motor strength exam: Left Upper Extremity: 2/1, Right Upper Extremity: 3, Left Lower Extremity: 2/1, Right Lower Extremity: 3 - Psychiatric Exam Psychiatric exam: Normal Affect, Normal Mood - Skin Skin Exam: Normal Color Assessment and Plan (1) CVA (cerebrovascular accident due to intracerebral hemorrhage) Assessment & Plan: plan for physical. occupational, and recx therapy status post team conferefnce Dc for September 16 Status: Acute (2) Basal ganglia hemorrhage Status: Acute (3) Bleeding gums Status: Acute (4) Hypertension Status: Chronic
--- NOTE | 2016-09-11 13:37 | CP.PCM.PN ---
Subjective - Date & Time of Evaluation Date of Evaluation: 09/11/16 Time of Evaluation: 13:15 - Subjective Subjective: Pt seen and examined. Claimed strength on left side has been improving. Denied any complaint. Objective - Vital Signs/Intake and Output Vital Signs (last 24 hours): Temp Pulse Resp BP Pulse Ox 96 F L 69 20 114/58 L 95 09/11/16 09:35 09/11/16 09:35 09/11/16 09:35 09/11/16 09:35 09/10/16 20:11 - Medications Medications: Current Medications Acetaminophen (Tylenol 325mg Tab) 650 mg PO Q6 PRN PRN Reason: Headache Amlodipine Besylate (Norvasc) 10 mg PO DAILY [facility] Last Admin: 09/11/16 09:06 Dose: 10 mg Bisacodyl (Dulcolax) 10 mg [place] DAILY PRN PRN Reason: Constipation Last Admin: 09/09/16 17:35 Dose: 10 mg Docusate Sodium (Colace) 100 mg PO BID [facility] Last Admin: 09/11/16 09:05 Dose: 100 mg Famotidine (Pepcid) 20 mg PO BID [facility] Last Admin: 09/11/16 09:06 Dose: 20 mg Lactulose (Enulose) 10 gm PO DAILY PRN PRN Reason: Constipation Metoprolol Tartrate (Lopressor) 25 mg PO Q12 [facility] Last Admin: 09/11/16 09:05 Dose: 25 mg - Labs Labs: 08/24/16 05:30 08/24/16 05:30 - Constitutional Appears: No Acute Distress - Head Exam Head Exam: ATRAUMATIC - Eye Exam Eye Exam: absent: Scleral icterus - ENT Exam ENT Exam: Mucous Membranes Moist - Neck Exam Neck Exam: absent: Meningismus - Respiratory Exam Respiratory Exam: absent: Rhonchi, Wheezes, Respiratory Distress - Cardiovascular Exam Cardiovascular Exam: REGULAR RHYTHM, +S1, +S2 - GI/Abdominal Exam GI & Abdominal Exam: Soft. absent: Tenderness - Rectal Exam Rectal Exam: Deferred - Extremities Exam Extremities Exam: absent: Pedal Edema - Neurological Exam Neurological Exam: Alert, Oriented x3 - Psychiatric Exam Psychiatric exam: Normal Affect - Skin Skin Exam: Dry, Intact Assessment and Plan (1) CVA (cerebrovascular accident due to intracerebral hemorrhage) Status: Acute (2) Hypertension Status: Chronic - Assessment and Plan (Free Text) Assessment: 70 yo male with history of HTN was admitted at [facility] after falling in the bathroom on 08/19/2016 because of left sided weakness. He was immediately brought to the ER where code stroke was activated. CT scan of the brain was consistent with right small thalamic bleed. Neurosurgery was consulted and recommended no surgical intervention. Patient was transferred to [facility] and admitted to Acute Rehab for PT/OT. 1. CVA (cerebrovascular accident due to intracerebral hemorrhage) Dr Lion on physiatry consult doing well and improving with PT/OT BP control Dr Metz on neuro consult 2. Hypertension BP stable continue Norvasc and Metoprolol
[2016-09-12 06:24] LABS: BLOOD UREA NITROGEN 18 mg/dl (9-20); CALCIUM 9.3 mg/dL (8.4-10.2); GFR AFRICAN-AMERICAN > 60; GFR NON-AFRICAN AMERICAN > 60
--- NOTE | 2016-09-13 09:40 | CP.PCM.PN ---
Subjective - Date & Time of Evaluation Date of Evaluation: 09/13/16 Time of Evaluation: 09:40 - Subjective Subjective: doing well with PT no complaints at this time at bedside HD stable NAD Objective - Vital Signs/Intake and Output Vital Signs (last 24 hours): Temp Pulse Resp BP Pulse Ox 98.1 F 71 20 119/70 97 09/13/16 07:35 09/13/16 08:30 09/13/16 07:35 09/13/16 08:30 09/13/16 07:35 - Medications Medications: Current Medications Acetaminophen (Tylenol 325mg Tab) 650 mg PO Q6 PRN PRN Reason: Headache Amlodipine Besylate (Norvasc) 10 mg PO DAILY [facility] Last Admin: 09/12/16 09:30 Dose: 10 mg Bisacodyl (Dulcolax) 10 mg [place] DAILY PRN PRN Reason: Constipation Last Admin: 09/09/16 17:35 Dose: 10 mg Docusate Sodium (Colace) 100 mg PO BID [facility] Last Admin: 09/13/16 08:29 Dose: 100 mg Famotidine (Pepcid) 20 mg PO BID [facility] Last Admin: 09/13/16 08:31 Dose: 20 mg Lactulose (Enulose) 10 gm PO DAILY PRN PRN Reason: Constipation Metoprolol Tartrate (Lopressor) 25 mg PO Q12 [facility] Last Admin: 09/13/16 08:30 Dose: 25 mg - Labs Labs: 08/24/16 05:30 09/12/16 05:50 - Constitutional Appears: Non-toxic, No Acute Distress - Head Exam Head Exam: ATRAUMATIC, NORMOCEPHALIC - Eye Exam Eye Exam: EOMI, Normal appearance, PERRL Pupil Exam: NORMAL ACCOMODATION - ENT Exam ENT Exam: Mucous Membranes Moist, Normal Oropharynx - Neck Exam Neck Exam: Normal Inspection. absent: Lymphadenopathy - Respiratory Exam Respiratory Exam: Clear to Ausculation Bilateral, NORMAL BREATHING PATTERN - Cardiovascular Exam Cardiovascular Exam: REGULAR RHYTHM, RRR, +S1, +S2 - GI/Abdominal Exam GI & Abdominal Exam: Soft, Normal Bowel Sounds. absent: Tenderness, Organomegaly - Extremities Exam Extremities Exam: Normal Capillary Refill. absent: Joint Swelling - Back Exam Back Exam: absent: CVA tenderness (L), CVA tenderness (R) - Neurological Exam Neurological Exam: Alert, Awake - Psychiatric Exam Psychiatric exam: Normal Affect, Normal Mood - Skin Skin Exam: Dry, Warm Assessment and Plan - Assessment and Plan (Free Text) Plan: 70 yo male with history of HTN was admitted at [facility] after falling in the bathroom on 08/19/2016 because of left sided weakness. He was immediately brought to the ER where code stroke was activated. CT scan of the brain was consistent with right small thalamic bleed. Neurosurgery was consulted and recommended no surgical intervention. Patient was transferred to [facility] and admitted to Acute Rehab for PT/OT. 1. CVA (cerebrovascular accident due to intracerebral hemorrhage) Dr Lion on physiatry consult doing well and improving with PT/OT BP control Dr Metz on neuro consult 2. Hypertension BP stable continue Norvasc and Metoprolol
--- NOTE | 2016-09-13 16:39 | CP.PCM.PN ---
Subjective - Date & Time of Evaluation Date of Evaluation: 09/12/16 Time of Evaluation: 16:00 - Subjective Subjective: patient lying in bed, no acute complaints Objective - Vital Signs/Intake and Output Vital Signs (last 24 hours): Temp Pulse Resp BP Pulse Ox 98.1 F 82 20 120/70 97 09/13/16 07:35 09/13/16 10:00 09/13/16 07:35 09/13/16 10:00 09/13/16 07:35 - Medications Medications: Current Medications Acetaminophen (Tylenol 325mg Tab) 650 mg PO Q6 PRN PRN Reason: Headache Amlodipine Besylate (Norvasc) 10 mg PO DAILY [facility] Last Admin: 09/13/16 10:00 Dose: 10 mg Bisacodyl (Dulcolax) 10 mg [place] DAILY PRN PRN Reason: Constipation Last Admin: 09/09/16 17:35 Dose: 10 mg Docusate Sodium (Colace) 100 mg PO BID [facility] Last Admin: 09/13/16 08:29 Dose: 100 mg Famotidine (Pepcid) 20 mg PO BID [facility] Last Admin: 09/13/16 08:31 Dose: 20 mg Lactulose (Enulose) 10 gm PO DAILY PRN PRN Reason: Constipation Metoprolol Tartrate (Lopressor) 25 mg PO Q12 [facility] Last Admin: 09/13/16 08:30 Dose: 25 mg - Labs Labs: 08/24/16 05:30 09/12/16 05:50 - Head Exam Head Exam: ATRAUMATIC, NORMAL INSPECTION, NORMOCEPHALIC - Eye Exam Pupil Exam: NORMAL ACCOMODATION, PERRL - ENT Exam ENT Exam: Mucous Membranes Dry, Mucous Membranes Moist, Normal Exam - Neck Exam Neck Exam: Normal Inspection - Respiratory Exam Respiratory Exam: NORMAL BREATHING PATTERN - Cardiovascular Exam Cardiovascular Exam: REGULAR RHYTHM - GI/Abdominal Exam GI & Abdominal Exam: Normal Bowel Sounds - Rectal Exam Rectal Exam: NORMAL INSPECTION - Exam External exam: NORMAL EXTERNAL EXAM - Extremities Exam Extremities Exam: Normal Capillary Refill, Normal Inspection - Back Exam Back Exam: NORMAL INSPECTION - Neurological Exam Neurological Exam: Alert, Awake Neuro motor strength exam: Left Upper Extremity: 2/1, Right Upper Extremity: 4, Left Lower Extremity: 2/1, Right Lower Extremity: 4 - Psychiatric Exam Psychiatric exam: Normal Affect, Normal Mood - Skin Skin Exam: Normal Color Assessment and Plan (1) CVA (cerebrovascular accident due to intracerebral hemorrhage) Assessment & Plan: plan to continue with physical, occupational, speech, and rec therapy continue to monitor bowel, vitals, and skin Status: Acute (2) Basal ganglia hemorrhage Status: Acute (3) Bleeding gums Status: Acute (4) Hypertension Status: Chronic
[2016-09-14 20:52] VITALS: RESP 20
[2016-09-16 07:49] VITALS: BP 122/73; PULSE 62; TEMP 97.7; O2SAT 95
--- NOTE | 2016-09-16 12:24 | CP.PCM.DIS ---
Provider - Provider Date of Admission: 08/23/16 15:33 Attending physician: Farzad Taylor MD Consults: Dr Amin Time Spent in preparation of Discharge (in minutes): 35 Diagnosis - Discharge Diagnosis (1) CVA (cerebrovascular accident due to intracerebral hemorrhage) Status: Acute Comment: to continue PT/OT in [facility] (2) Hypertension Status: Chronic Comment: BP stable. continue Norvasc and Metoprolol Hospital Course - Lab Results Lab Results: Most Recent Lab Values WBC 10.7 K/uL (4.8-10.8) 08/24/16 05:30 RBC 5.02 Mil/uL (4.40-5.90) 08/24/16 05:30 Hgb 15.9 g/dL (12.0-18.0) 08/24/16 05:30 Hct 48.3 % (35.0-51.0) 08/24/16 05:30 MCV 96.1 fl (80.0-94.0) H 08/24/16 05:30 MCH 31.6 pg (27.0-31.0) H 08/24/16 05:30 MCHC 32.9 g/dL (33.0-37.0) L 08/24/16 05:30 RDW 12.8 % (11.5-14.5) 08/24/16 05:30 Plt Count 180 K/uL (130-400) 08/24/16 05:30 MPV 9.4 fl (7.2-11.7) 08/24/16 05:30 Neut % (Auto) 64.6 % (50.0-75.0) 08/24/16 05:30 Lymph % (Auto) 17.3 % (20.0-40.0) L 08/24/16 05:30 Bucks % (Auto) 8.3 % (0.0-10.0) 08/24/16 05:30 Eos % (Auto) 9.4 % (0.0-4.0) H 08/24/16 05:30 Baso % (Auto) 0.4 % (0.0-2.0) 08/24/16 05:30 Neut # 6.9 K/uL (1.8-7.0) 08/24/16 05:30 Lymph # 1.9 K/uL (1.0-4.3) 08/24/16 05:30 Bucks # 0.9 K/uL (0.0-0.8) H 08/24/16 05:30 Eos # 1.0 K/uL (0.0-0.7) H 08/24/16 05:30 Baso # 0.0 K/uL (0.0-0.2) 08/24/16 05:30 Sodium 138 mmol/l (132-148) 09/12/16 05:50 Potassium 4.3 MMOL/L (3.6-5.0) 09/12/16 05:50 Chloride 103 mmol/L (98-107) 09/12/16 05:50 Carbon Dioxide 25 mmol/L (22-30) 09/12/16 05:50 Anion Gap 15 (10-20) 09/12/16 05:50 BUN 18 mg/dl (9-20) 09/12/16 05:50 Creatinine 0.9 mg/dL (0.8-1.5) 09/12/16 05:50 Est GFR ( Amer) > 60 09/12/16 05:50 Est GFR (Non-Af Amer) > 60 09/12/16 05:50 Random Glucose 95 mg/dL (75-110) 09/12/16 05:50 Calcium 9.3 mg/dL (8.4-10.2) 09/12/16 05:50 - Hospital Course Hospital Course: 70 yo male with history of HTN was admitted at [facility] ([facility] after falling in the bathroom on 08/19/2016 and was found to be suffering from acute CVA with left facial droop and left sided weakness. CT scan of the head showed right small thalamic bleed. He was transferred later to [facility] and was admitted in Acute Rehab where he underwent PT/OT and did well. He will be transferred to [facility] to continue his therapy. Discharge Exam - Head Exam Head Exam: ATRAUMATIC, NORMAL INSPECTION, NORMOCEPHALIC - Eye Exam Eye Exam: absent: Scleral icterus - ENT Exam ENT Exam: Mucous Membranes Moist - Respiratory Exam Respiratory Exam: NORMAL BREATHING PATTERN. absent: Wheezes, Respiratory Distress - Cardiovascular Exam Cardiovascular Exam: REGULAR RHYTHM, +S1, +S2 - GI/Abdominal Exam GI & Abdominal Exam: Soft. absent: Tenderness - Rectal Exam Rectal Exam: Deferred - Neurological Exam Neurological exam: Alert, Oriented x3 - Psychiatric Exam Psychiatric exam: Normal Affect - Skin Skin Exam: Dry, Intact Discharge Plan - Follow Up Plan Condition: GOOD Disposition: REHAB FACILITY/REHAB UNIT
== END 2016-09-16 13:10 | DRG 57 ==
PROC: F07Z9FZ Gait Training/Functional Ambulation Treatment using Assistive, Adaptive, Supportive or Protective Equipment (ICD-10-PCS; principal; 2016-08-23)
PROC: F07M6FZ Therapeutic Exercise Treatment of Musculoskeletal System - Whole Body using Assistive, Adaptive, Supportive or Protective Equipment (ICD-10-PCS; 2016-08-23)
PROC: F07M6FZ Therapeutic Exercise Treatment of Musculoskeletal System - Whole Body using Assistive, Adaptive, Supportive or Protective Equipment (ICD-10-PCS; 2016-08-23)
DX: I69.154 Hemiplegia and hemiparesis following nontraumatic intracerebral hemorrhage affecting left non-dominant side (principal); I10 Essential (primary) hypertension; I69.192 Facial weakness following nontraumatic intracerebral hemorrhage; K59.00 Constipation, unspecified; I69.992 Facial weakness following unspecified cerebrovascular disease; Z86.73 Personal history of transient ischemic attack (TIA), and cerebral infarction without residual deficits; Z91.14 Patient's other noncompliance with medication regimen; H26.9 Unspecified cataract; L30.9 Dermatitis, unspecified; M19.90 Unspecified osteoarthritis, unspecified site; Z91.81 History of falling